=== PATIENT | male | born 1935 | race Caucasian/White ===

== ENCOUNTER 2019-10-25 11:08 | Inpatient (IN) | payer MEDICARE, BC ==
--- NOTE | 2019-10-25 11:23 | ER Document Report ---
ED General - General Chief Complaint: Shortness Of Breath Stated Complaint: COUGH/SHORTNESS OF BREATH Time Seen by Provider: 10/25/19 11:13 Primary Care Provider: DAVID ZARATE MD [Primary Care Provider] - Follow up as needed Notes: 83-year-old male presents with shortness of breath and dry "hacking" cough that started several days ago. He has began having more fatigue and dyspnea exertion last 2 days as well. No fever chills headache taste changes body aches or exposure to COVID. Denies a history of heart failure COPD. Does not smoke does not drink. No chest pain or palpitations. - Related Data Allergies/Adverse Reactions: No Known Allergies Allergy (Verified 10/25/19 11:22) Past Medical History - General Information source: Patient - Social History Smoking Status: Never Smoker Family History: None Review of Systems - Review of Systems Notes: REVIEW OF SYSTEMS GEN: Denies fever, chills, weight loss ENT: Denies sore throat, nasal discharge, ear pain EYES: Denies blurry vision, eye pain, discharge CV: Denies chest pain, palpitations, edema RESP: Numbness of breath hacking cough GI: Denies abdominal pain, nausea, vomiting, diarrhea MSK: Denies joint pain/swelling, edema, SKIN: Denies rash, skin lesions LYMPH: Denies swollen glands/lymph nodes NEURO: Denies headache, focal weakness or numbness, dizziness PSYCH: Denies depression, suicidal or homicidal ideation PHYSICAL EXAMINATION General: No acute distress, well-nourished Head: Atraumatic, normocephalic ENT: Mouth normal, oropharynx moist, no exudates or tonsillar enlargement Eyes: Conjunctiva normal, pupils equal, lids normal Neck: No JVD, supple, no guarding CVS: Normal rate, regular rhythm, no murmurs Resp: No resp distress, equal and normal breath sounds bilaterally GI: Nondistended, soft, no tenderness to palpation, no rebound or guarding Ext: No deformities, no edema, normal range of motion in upper and lower ext Back: No CVA or midline TTP Skin: No rash, warm Lymphatic: No lymphadeopathy noted Neuro: Awake, alert. Face symmetric. GCS 15. Physical Exam - Vital signs Vitals: Temp Pulse Resp BP Pulse Ox 97.7 F 99 16 132/68 H 88 L 10/25/19 11:20 10/25/19 11:20 10/25/19 11:20 10/25/19 11:20 10/25/19 11:20 Course - Re-evaluation Re-evalutation: 10/25/19 14:54 Female who seems actually quite healthy presents with unexplained dyspnea and cough for the last few days concerning for COVID-19 infection. He does not have COPD does not smoke has never smoked and has no CHF. His exam is reasonably unimpressive but he is hypoxic and seems to be reasonably unconcerned with this. COVID was sent. I pushed for rapid COVID but this was denied by hospital administration because this test is being restricted His x-ray shows bilateral infiltrates, his troponin is detectable but not elevated and there is no other explanation for his symptoms. He does have leukocytosis. I discussed his case with Dr. Nance and who said that they are treating these patients with azithromycin monotherapy if they are more likely C OVID than bacterial pneumonia. This was ordered along with Decadron per his recommendations. Culture was done. - Vital Signs Vital signs: Temp Pulse Resp BP Pulse Ox 97.7 F 99 16 132/68 H 96 10/25/19 11:20 10/25/19 11:20 10/25/19 11:20 10/25/19 11:20 10/25/19 12:00 - Laboratory Result Diagrams: 10/25/19 11:25 10/25/19 11:25 Laboratory results interpreted by me: 10/25/19 10/25/19 11:25 11:25 WBC 16.7 H RDW 15.0 H Absolute Neuts (auto) 12.8 H Sodium 136.1 L Potassium 3.5 L Est GFR (MDRD) Non-Af 55 L Glucose 228 H - Diagnostic Test Radiology reviewed: Image reviewed, Reports reviewed - EKG Interpretation by Tx EKG shows normal: Sinus rhythm Rate: Normal Rhythm: NSR When compared to previous EKG there are: Previous EKG unavailable - No ST to a changes concerning for ischemia Discharge - Discharge Clinical Impression: Bilateral pneumonia Qualifiers: Pneumonia type: due to unspecified organism Lung location: unspecified part of lung Qualified Code(s): J18.9 - Pneumonia, unspecified organism Condition: Fair Disposition: ADMITTED INPATIENT Admitting Provider: Leanne (Hospitalist) Unit Admitted: Telemetry Referrals: DAVID ZARATE MD [Primary Care Provider] - Follow up as needed
[2019-10-25 11:35] LABS: ABSOLUTE BASOPHILS # (AUTO) 0.1 10^3/uL (0.0-0.2); ABSOLUTE EOSINOPHILS # (AUTO) 0.5 10^3/uL (0.0-0.6); ABSOLUTE LYMPHOCYTES (AUTO) 2.4 10^3/uL (0.5-4.7); ABSOLUTE NEUT (AUTO) 12.8 10^3/uL (1.7-8.2); BASOPHILS % (AUTO) 0.4 % (0-2); HEMOGLOBIN 15.7 g/dL (13.5-17.0); LYMPHOCYTES % (AUTO) 14.2 % (13-45); MEAN CORPUSCULAR HEMOGLOBIN 30.3 pg (27.0-33.4); MEAN CORPUSCULAR HGB CONC 33.4 g/dL (32.0-36.0); MEAN CORPUSCULAR VOLUME 91 fl (80-97); MONOCYTES % (AUTO) 6.2 % (3-13); PLATELET COUNT 166 10^3/uL (150-450); RED BLOOD COUNT 5.19 10^6/uL (4.35-5.55); SEGMENTED NEUTROPHILS % (AUTO) 76.2 % (42-78); TOTAL CELLS COUNTED % (AUTO) 100 %; WHITE BLOOD COUNT 16.7 10^3/uL (4.0-10.5)
[2019-10-25 12:01] LABS: ANION GAP 10 (5-19); BLOOD UREA NITROGEN 19 mg/dL (7-20); CALCIUM 9.7 mg/dL (8.4-10.2); CARBON DIOXIDE 26 mmol/L (22-30); CHLORIDE 100 mmol/L (98-107); GLUCOSE 228 mg/dL (75-110); POTASSIUM 3.5 mmol/L (3.6-5.0)
[2019-10-25 13:56] LABS: TROPONIN I 0.052 ng/mL
[2019-10-25] MEDS ORDERED: AZITHROMYCIN INJ 500 MG VIAL IV ONE (14:06)
[2019-10-25] MEDS ORDERED: DEXAMETHASONE 4 MG TABLET PO ONE (14:07)
--- NOTE | 2019-10-25 14:20 | RADIOLOGY REPORT (SQ) ---
EXAM DESCRIPTION: CHEST SINGLE VIEW IMAGES COMPLETED DATE/TIME: 10/25/2019 11:41 am REASON FOR STUDY: Cough shortness of breath COMPARISON: None. EXAM PARAMETERS: NUMBER OF VIEWS: One view. TECHNIQUE: Single frontal radiographic view of the chest acquired. RADIATION DOSE: NA LIMITATIONS: None. FINDINGS: LUNGS AND PLEURA: Diffuse bilateral interstitial opacities. More focal right infrahilar n odular consolidation. No significant pleural effusion. No pneumothorax. MEDIASTINUM AND HILAR STRUCTURES: No masses. Contour normal. HEART AND VASCULAR STRUCTURES: Enlarged cardiac silhouette with central vascular congestion. BONES: No acute findings. HARDWARE: None in the chest. OTHER: No other significant finding. IMPRESSION: Enlarged cardiac silhouette, central vascular congestion and interstitial edema. More f ocal right infrahilar opacity possibly asymmetric edema or developing infiltrate. TECHNICAL DOCUMENTATION: JOB ID: [id number] 2010 [employer]- All Rights Reserved Reading location - IP/workstation name: [email or web address]
[2019-10-25] MEDS ORDERED: ONDANSETRON HCL INJ/PF 4 MG/2 ML SDV IV PRN (15:37)
[2019-10-25] MEDS ORDERED: OXYCODONE-ACETAMINOPHEN 5-325 MG TABLET PO PRN (15:37)
[2019-10-25] MEDS ORDERED: MAGNESIUM HYDROXIDE SUSP 30 ML UDCUP PO PRN (15:37)
[2019-10-25] MEDS ORDERED: TEMAZEPAM 15 MG CAPSULE PO PRN (15:37)
[2019-10-25] MEDS ORDERED: IPRATROPIUM/ALBUTEROL 0.5-2.5 MG/3 ML AMPUL NEB PRN (15:37)
[2019-10-25] MEDS ORDERED: ACETAMINOPHEN 325 MG TABLET PO PRN (15:37)
[2019-10-25] MEDS ORDERED: PROMETHAZINE HCL INJ 25 MG/1 ML VIAL IV PRN (15:37)
[2019-10-25] MEDS ORDERED: HYDRALAZINE HCL INJ/PF 20 MG/1 ML SDV IV PRN (15:44)
[2019-10-25] MEDS ORDERED: METOPROLOL TARTRATE PF/INJ 5 MG/5 ML SDV IV PRN (15:44)
[2019-10-25 16:11] LABS: FREE T4 (FREE THYROXINE) 1.58 ng/dL (0.78-2.19)
--- NOTE | 2019-10-25 16:14 | EKG REPORT ---
SEVERITY:- ABNORMAL ECG - SINUS RHYTHM NONSPECIFIC INTRAVENTRICULAR CONDUCTION DELAY MINIMAL ST DEPRESSION, LATERAL LEADS : Confirmed by: Alejandro Bishop MD 25-Oct-2019 16:14:08
[2019-10-25 16:25] LABS: THYROID STIMULATING HORMONE 1.59 uIU/mL (0.47-4.68)
[2019-10-25] MEDS ORDERED: ENOXAPARIN SODIUM INJ 40 MG/0.4 ML DISP.SYRIN SUBCUT SCH (17:00)
[2019-10-25] MEDS: ASPIRIN 81 MG TABLET, CHEWABLE PO SCH (18:29)
[2019-10-25] MEDS: VALSARTAN 160 MG TABLET PO SCH (18:30)
[2019-10-25 18:36] LABS: CHOLESTEROL 166.98 mg/dL (0-200); TRIGLYCERIDES 140 mg/dL (<150)
[2019-10-25 18:55] LABS: DIRECT LDL 97 mg/dL (<100)
[2019-10-25 19:09] LABS: APPEARANCE,URINE CLEAR; BILIRUBIN,URINE NEGATIVE (NEGATIVE); COLOR,URINE YELLOW; GLUCOSE, URINE NEGATIVE (NEGATIVE); KETONES,URINE NEGATIVE (NEGATIVE); PROTEIN,URINE NEGATIVE (NEGATIVE); URINE SPECIFIC GRAVITY 1.009; UROBILINOGEN,URINE NEGATIVE mg/dL (<2.0)
--- NOTE | 2019-10-25 20:13 | PDOC H&P ---
History of Present Illness Admission Date/PCP: 10/25/19 15:25 DAVID ZARATE MD History of Present Illness: MONTSE DUBOIS is a 83 year old male past medical history of pituitary tumor status post transsphenoidal hypophysectomy, acquired hypothyroidism, hypertension, gout, hyperlipidemia, presenting to ED complaining of recent onset of extreme fatigue, dyspnea on exertion, and nonproductive cough. At baseline patient is very healthy does not have any dyspnea on exertion and is very independent, however recently he gets winded very easily and has to rest for 5 to 10 minutes before he can do any activities. Dyspnea on exertion is not associated with any chest pain, palpitation, lightheadedness or syncope or presyncope. Patient denies any history personal or family history of CAD, COPD, arrhythmias. Patient denies any recent travel, any exposure to anyone suspected of being exposed to COVID-19. In ED he was noted to be hypertensive, tachypneic, and hypoxic, troponins were mildly elevated, and EKG read as sinus rhythm with nonspecific anterior ventricular conduction delay. Minimal ST depression. Chest x-ray enlarged cardiac silhouette, central vascular congestion and interstitial edema. More focal right infra hilar opacity possibly asymmetric edema or developing infiltrate. Denies any headache, vision changes, weight changes, orthopnea, paroxysmal nocturnal dyspnea, palpitation, lightheadedness, chest pain, nausea, vomiting, diarrhea, constipation, abdominal pain, urinary symptoms. Past Medical History Cardiac Medical History: Reports: Hypertension Social History Smoking Status: Never Smoker Family History Family History: None Parental Family History Reviewed: Yes Children Family History Reviewed: Yes Sibling(s) Family History Reviewed.: Yes Medication/Allergy Home Medications: Allopurinol [Zyloprim 300 mg Tablet] 300 mg PO DAILY 10/25/19 Atorvastatin Calcium [Lipitor 20 mg Tablet] 20 mg PO QHS 10/25/19 Levothyroxine Sodium [Synthroid] 125 mcg PO Q6AM 10/25/19 Valsartan/Hydrochlorothiazide [Valsartan-Hctz 320-25 mg Tab] 1 each PO DAILY 10/25/19 Verapamil HCl [Verapamil ER] 240 mg PO DAILY 10/25/19 Allergies/Adverse Reactions: No Known Allergies Allergy (Verified 10/25/19 11:22) Review of Systems Review of Systems: as per hpi Physical Exam Vital Signs: Temp Pulse Resp BP Pulse Ox 97.7 F 99 32 H 159/100 H 96 10/25/19 11:20 10/25/19 11:20 10/25/19 19:01 10/25/19 19:01 10/25/19 19:01 Intake & Output 10/24/19 10/25/19 10/26/19 06:59 06:59 06:59 Weight 102.058 kg General appearance: PRESENT: no acute distress, obese, well-developed, well- nourished Head exam: PRESENT: atraumatic, normocephalic Respiratory exam: PRESENT: clear to auscultation michelle. ABSENT: rales, rhonchi, wheezes Cardiovascular exam: PRESENT: RRR. ABSENT: diastolic murmur, rubs, systolic murmur GI/Abdominal exam: PRESENT: normal bowel sounds, soft. ABSENT: distended, guarding, mass, organolmegaly, rebound, tenderness Extremities exam: PRESENT: full ROM, pedal edema. ABSENT: calf tenderness, clubbing Neurological exam: PRESENT: alert, awake, oriented to person, oriented to place, oriented to time, oriented to situation, CN II-XII grossly intact. ABSENT: motor sensory deficit Skin exam: PRESENT: dry, intact, warm. ABSENT: cyanosis, rash Results Laboratory Results: 10/25/19 11:25 10/25/19 11:25 10/25/19 10/25/19 10/25/19 11:25 11:25 11:25 WBC 16.7 H RBC 5.19 Hgb 15.7 Hct 47.0 MCV 91 MCH 30.3 MCHC 33.4 RDW 15.0 H Plt Count 166 Seg Neutrophils % 76.2 Sodium 136.1 L Potassium 3.5 L Chloride 100 Carbon Dioxide 26 Anion Gap 10 BUN 19 Creatinine 1.25 Est GFR ( Amer) > 60 Glucose 228 H Calcium 9.7 Triglycerides Cholesterol LDL Cholesterol Direct VLDL Cholesterol HDL Cholesterol TSH 1.59 Free T4 1.58 Urine Color Urine Appearance Urine pH Ur Specific [place] Urine Protein Urine Glucose (UA) Urine Ketones Urine Blood Urine RBC (Auto) 10/25/19 10/25/19 16:20 18:30 WBC RBC Hgb Hct MCV MCH MCHC RDW Plt Count Seg Neutrophils % Sodium Potassium Chloride Carbon Dioxide Anion Gap BUN Creatinine Est GFR ( Amer) Glucose Calcium Triglycerides 140 Cholesterol 166.98 LDL Cholesterol Direct 97 VLDL Cholesterol 28.0 HDL Cholesterol 47 TSH Free T4 Urine Color YELLOW Urine Appearance CLEAR Urine pH 6.0 Ur Specific [place] 1.009 Urine Protein NEGATIVE Urine Glucose (UA) NEGATIVE Urine Ketones NEGATIVE Urine Blood SMALL H Urine RBC (Auto) 1 10/25/19 11:25 Troponin I 0.052 NT-Pro-B Natriuret Pep 278 Impressions: Chest X-Ray 10/25/19 11:22 IMPRESSION: Enlarged cardiac silhouette, central vascular congestion and interstitial edema. More focal right infrahilar opacity possibly asymmetric edema or developing infiltrate. Assessment and Plan - Diagnosis (1) Dyspnea on exertion Is this a current diagnosis for this admission?: Yes Plan: Likely due to COVID-19 or pneumonia however underlying CAD is also highly suspected given history and presentation. Denies any personal family history of CAD. Chest x-ray is positive for cardiomegaly. Minimal ST depression. Mildly elevated troponins. TSH, T3 and T4 WNL. Hemoglobin A1c WNL. Lipid panel WNL. Admit to telemetry, antiplatelets, statins, beta-blockers, CARMELO, sublingual nitroglycerin, IV morphine, consult cardiology for possible stress test for further risk stratification. (2) Hypertension Is this a current diagnosis for this admission?: Yes Plan: Mildly elevated blood pressure. Trace bipedal edema. Takes hydrochlorothiazide and valsartan and verapamil at home. Admit to telemetry, continue CARMELO, continue hydrochlorothiazide, continue verapamil. Monitor vitals. Adjust meds as needed. (3) Hypothyroidism (acquired) Is this a current diagnosis for this admission?: Yes Plan: History of pituitary tumor, status post hypophysectomy. TSH, T3-T4 WNL. Resume home meds. Outpatient PCP follow-up. (4) Hyperlipidemia Qualifiers: Hyperlipidemia type: mixed hyperlipidemia Qualified Code(s): E78.2 - Mixed hyperlipidemia Is this a current diagnosis for this admission?: Yes Plan: Resume statins. Diet and lifestyle modification recommended. TSH, T3 and T4 WNL. Hemoglobin A1c WNL. Lipid panel WNL. (5) Suspected COVID-19 virus infection Is this a current diagnosis for this admission?: Yes Plan: Denies any exposure to anyone with suspected COVID 19 exposure. Denies any fever. Presenting with fatigue, dyspnea on exertion and dry cough. Denies any diarrhea, loss of smell or loss of taste. Admit to IMCU, azithromycin IV, dexamethasone, COVID-19 serology. Contact and droplet isolation.
[2019-10-25] MEDS: IPRATROPIUM/ALBUTEROL 0.5-2.5 MG/3 ML AMPUL NEB SCH (20:40)
--- NOTE | 2019-10-25 22:41 | PDOC CONSULTATION ---
Consultation-Blank Consultation: CARDIOLOGY CONSULTATION by Dr. Sobeida Jennings on 10/25/2019. Patient seen at 6:30 PM. 60 minutes spent as patient more than 50% time spent in direct patient care. HISTORY OF PRESENT ILLNESS: Patient is a 83-year-old male with a history of hypertension, history of transsphenoidal hypophysectomy for pituitary tumor, hypothyroidism who states since the past few months has been having progressively increasing dyspnea on exertion. But no chest pain or discomfort. There is no palpitations. There is no PND orthopnea or leg edema. Recently the patient had increasing shortness of breath and fatigue which escalated in the last 5 to 10 days. He denies any fever or sore throat or altered taste or smell sensation. With the patient also has dry nonproductive cough the cough is more when the patient is lying down suggestive of PND equal. There is no leg edema. There is no history of coronary artery disease LA or anginal symptoms. But his EKG shows possible old inferior wall LA and there is lateral ST-T changes consistent with possible ischemia. There is no history of asthma or COPD. The patient has never smoked and there is no history of wheezing. When he came to emergency room he was found to be hypertensive tachypneic and hypoxic. The patient initial troponin which is indeterminate is now increased to 0.410. The EKG does show some lateral ST depression which is mild raising the possibility that this could be in non-STEMI, and evidence of old inferior LA.. Also highly suspected there is systolic heart failure versus acute on chronic diastolic heart failure. Would later get an echo to determine this. Note that the patient has been tested for coronavirus infection and results are pending. Past Medical History Cardiac Medical History: Reports: Hypertension. No history of coronary artery disease. No history of LA or anginal symptoms. No history of congestive heart failure. No history of cardiac arrhythmia. No prior history of congestive heart failure documented. The patient has not had an echo. The patient states prior to 6 months he was very active and but at present he is not able to be at the level of activity that he used to be doing in the past. He has no syncope. He has a history of hyperlipidemia. He denies any history of chronic kidney disease. But the patient's GFR is slightly reduced at 55 mL. Social History Smoking Status: Never Smoker Family History Family History: None. There is no history of coronary artery disease. History of hypertension present. No history of sudden . Parental Family History Reviewed: Yes Children Family History Reviewed: Yes Sibling(s) Family History Reviewed.: Yes Medication/Allergy Home Medications: Allopurinol [Zyloprim 300 mg Tablet] 300 mg PO DAILY 10/25/19 Atorvastatin Calcium [Lipitor 20 mg Tablet] 20 mg PO QHS 10/25/19 Levothyroxine Sodium [Synthroid] 125 mcg PO Q6AM 10/25/19 Valsartan/Hydrochlorothiazide [Valsartan-Hctz 320-25 mg Tab] 1 each PO DAILY 10/25/19 Verapamil HCl [Verapamil ER] 240 mg PO DAILY 10/25/19 RESUSCITATION STATUS: The patient is a full code. His is a surrogate healthcare decision maker. Allergies/Adverse Reactions: No Known Allergies Allergy (Verified 10/25/19 11:22) Current Medications Generic Name Dose Route Start Last Admin Trade Name Freq PRN Reason Stop Dose Admin Acetaminophen 325 mg 10/25/19 15:37 Tylenol 325 Mg Tablet PO 11/24/19 15:36 Q4HP PRN FEVER >101 Albuterol/Ipratropium 3 ml 10/25/19 20:00 10/25/19 20:40 Duoneb 3 Ml Ampul NEB 11/24/19 19:59 3 ml [id number] RUDY Administration Albuterol/Ipratropium 3 ml 10/25/19 15:37 Duoneb 3 Ml Ampul NEB 11/24/19 15:36 [id number] PRN SHORTNESS OF BREATH Allopurinol 300 mg 10/26/19 10:00 Zyloprim 300 Mg Tablet PO 11/25/19 09:59 DAILY RUDY Aspirin 81 mg 10/25/19 16:30 10/25/19 18:29 Aspirin 81 Mg Chewable Tablet PO 11/24/19 16:29 81 mg DAILY RUDY Administration Atorvastatin Calcium 40 mg 10/25/19 22:00 10/25/19 22:42 Lipitor 40 Mg Tablet PO 11/24/19 21:59 40 mg QHS RUDY Administration Dexamethasone 2 mg 10/25/19 22:00 10/25/19 22:42 Decadron 4 Mg Tablet PO 11/24/19 21:59 2 mg Q8 RUDY Administration Enoxaparin Sodium 100 mg 10/26/19 10:00 Lovenox Inj 100 Mg/1 Ml Disp.Syrin SUBCUT 11/25/19 09:59 Q12 RUDY Famotidine 20 mg 10/25/19 22:00 10/25/19 22:42 Pepcid 20 Mg Tablet PO 11/24/19 21:59 20 mg Q12 RUDY Administration Hydralazine HCl 10 mg 10/25/19 15:44 Apresoline Inj/Pf 20 Mg/1 Ml Sdv IV 11/24/19 15:43 Q3HP PRN Give For Sbp > [150] Azithromycin 500 mg/ Dextrose 250 mls @ 250 mls/hr 10/26/19 18:00 IV 11/02/19 17:59 QPM RUDY Levothyroxine Sodium 0.1 mg 10/26/19 06:00 Synthroid 0.1 Mg Tablet PO 11/25/19 05:59 Q6AM RUDY Levothyroxine Sodium 0.025 mg 10/26/19 06:00 Synthroid 0.025 Mg Tablet PO 11/25/19 05:59 Q6AM RUDY Magnesium Hydroxide 30 ml 10/25/19 15:37 Milk Of Magnesia 30 Ml Udcup PO 11/24/19 15:36 HSP PRN FOR CONSTIPATION Metoprolol Tartrate 2.5 mg 10/25/19 15:44 Lopressor Inj/Pf 5 Mg/5 Ml Sdv IV 11/24/19 15:43 Q6HP PRN Give For Hr > [150] Ondansetron HCl 4 mg 10/25/19 15:37 Zofran Inj/Pf 4 Mg/2 Ml Sdv IV 11/24/19 15:36 Q4HP PRN FOR NAUSEA/VOMITING Oxycodone/Acetaminophen 1 tab 10/25/19 15:37 Percocet 5-325 Mg Tablet PO 11/01/19 15:36 Q4HP PRN FOR PAIN SCALE 3-5 Promethazine HCl 12.5 mg 10/25/19 15:37 Phenergan Inj 25 Mg/1 Ml Vial IV 11/24/19 15:36 Q4HP PRN FOR UNRESOLVED NAUSEA/VOMITING Temazepam 15 mg 10/25/19 15:37 Restoril 15 Mg Capsule PO 11/01/19 15:36 HSP PRN SLEEP OR INSOMNIA Valsartan 320 mg 10/25/19 16:30 10/25/19 18:30 Diovan 160 Mg Tablet PO 11/24/19 16:29 320 mg DAILY RUDY Administration Discontinued Medications Generic Name Dose Route Start Last Admin Trade Name Niko PRN Reason Stop Dose Admin Azithromycin 500 mg 10/25/19 14:06 10/25/19 14:34 Zithromax Inj 500 Mg Vial IV 10/25/19 14:07 500 mg IVBAG (ED) ONE Administration Dexamethasone 2 mg 10/25/19 14:07 10/25/19 14:34 Decadron 4 Mg Tablet PO 10/25/19 14:08 2 mg NOW ONE Administration Enoxaparin Sodium 40 mg 10/25/19 17:00 10/25/19 18:30 Lovenox Inj 40 Mg/0.4 Ml Disp.Syrin SUBCUT 11/24/19 16:59 40 mg DAILY RUDY Administration Enoxaparin Sodium 60 mg 10/26/19 00:15 Lovenox Inj 60 Mg/0.6 Ml Disp.Syrin SUBCUT 10/26/19 00:16 NOW ONE Valsartan 320 mg 10/26/19 10:00 Diovan 160 Mg Tablet PO 11/25/19 09:59 DAILY RUDY Review of Systems Review of Systems: REVIEW OF SYSTEMS: HEAD: Denies headache or head injury. Denies dizziness. CONSTITUTIONAL: No history of fever chills or rigors. Denies any generalized fatigue or weakness. She claims to be very active. EYES: No history of EMLA. Diplopia, and no for amaurosis fugax. NOSE: No history of deviated nasal septum, no hayfever and no nosebleeds. THROAT: No history of odynophagia dysphagia no history of recurrent sore throats. MOUTH: No altered taste sensation no ulcers in the mouth no bleeding from the gums. SKIN: No history of pruritus no history of allergies discoloration of the skin, no skin cancer or eczema. NECK: No history of neck pain,, no swelling in the neck. No goiter. LUNGS: No history of asthma COPD. No recent symptoms of upper or lower respiratory tract infection. No history of pulmonary embolism or sleep apnea. He has dry cough which could be interpreted as PND equal. No wheezing. No acute hemoptysis. No pleuritic chest pain. HEART: He has a history of hypertension, no prior history of LA or congestive heart failure or cardiac arrhythmia no history of leg edema no history of orthopnea. No history of syncope history of decreased effort tolerance and dyspnea on exertion since the last 6 months which is progressed since the last 5 to 10 days. There is possible PND equal length. But no orthopnea or leg edema. No palpitations or syncope. GI: No history of GERD symptoms. No history of jaundice. No history of fatty food intolerance. Note that the patient's liver function tests are slightly abnormal. There is no history of GI bleed. No abdominal pain. No cirrhosis of the liver. No altered bowel movements. No abdominal pain. Endocrine: No history of diabetes mellitus. He has a history of hypothyroidism. No history of polydipsia polyuria no history of heat or cold intolerance. No history of hirsutism. No history of excessive sweating. RENAL: No history of chronic kidney disease. But his GFR is reduced at 55 mL. No symptoms of UTI no history of hematuria pyuria or dysuria. Musculoskeletal: Denies arthritis or collagen vascular disease. Metabolic: No history of obesity. No history of gout. Although she has no prior history of hyperlipidemia the patient's lipids are elevated this admission. CLIENT RESOLUTION SPECIALIST: No history of TIA or CVA no history of headaches migraines or seizures, and no gait imbalance. PSYCHIATRIC: No history of anxiety depression. No suicidal ideation no homicidal ideation. VASCULAR: No history of calf or buttock claudication, and no history of DVT. Hematological: No history of bleeding diathesis or clotting disorders. No history of anemia. PHYSICAL EXAMINATION: The patient is mildly obese. In no acute distress. He is well-groomed. Selected Entries 10/25/19 19:29 Temperature 98.3 F Temperature Oral Source Pulse Rate 102 H Respiratory 19 Rate Blood Pressure 143/73 H Blood Pressure 96 Mean BP Location Right Arm BP Position Sitting O2 Sat by Pulse 91 L Oximetry Oxygen Delivery Room Air Method HEAD: Is atraumatic normocephalic. EYES: Pupils are equal round regular reactive to light and accommodation. Extraocular movements are normal. There is no conjunctival pallor. There is no scleral icterus. Ears: Tympanic membranes are intact. External auditory canals are clear. NOSE: There is no deviated nasal septum. There is no inflammation nasal mucous membrane. MOUTH: Mucous membranes of mouth are moist. Tongue is moist. There is no ulcers.. THROAT: There is no redness of the oropharynx. There is no exudates. SKIN: There is no skin rashes. There is no petechia or ecchymosis. There is no skin lesions. NECK: Is supple. There is no JVD. Carotids are equal there is no bruit. There is no lymphadenopathy. There is no goiter. There is no accessory muscle respiration use. Trachea central. LUNGS: Shows a few bibasilar rales. There is no rhonchi or wheezing. There is some dry crackles in the right middle lobe. There is no murmur of aortic stenosis. There is murmur of mitral regurgitation present. ABDOMEN: Soft. There is no paraspinal megaly. Bowel sounds are well heard. EXTREMITIES: Femorals are well felt. There is no femoral bruits. Leg pulses are well felt. There is no pedal edema. There is no DVT or cellulitis. There is no calf tenderness. There is no cyanosis or clubbing. CLIENT RESOLUTION SPECIALIST: The patient is conscious awake alert oriented x3 with no focal deficit. PSYCHIATRIC: The patient judgment insight are intact his affect is normal. EKG: Serially shows sinus rhythm. Possible old inferior LA. ST depression lateral leads with T inversion. Possible ischemia. Labs- Entire Visit 10/25/19 10/25/19 10/25/19 11:25 11:25 11:25 WBC 16.7 H RBC 5.19 Hgb 15.7 Hct 47.0 MCV 91 MCH 30.3 MCHC 33.4 RDW 15.0 H Plt Count 166 Lymph % (Auto) 14.2 [place] % (Auto) 6.2 Eos % (Auto) 3.0 Baso % (Auto) 0.4 Absolute Neuts (auto) 12.8 H Absolute Lymphs (auto) 2.4 Absolute Monos (auto) 1.0 Absolute Eos (auto) 0.5 Absolute Basos (auto) 0.1 Seg Neutrophils % 76.2 Sodium 136.1 L Potassium 3.5 L Chloride 100 Carbon Dioxide 26 Anion Gap 10 BUN 19 Creatinine 1.25 Est GFR ( Amer) > 60 Est GFR (MDRD) Non-Af 55 L Glucose 228 H Hemoglobin A1c % Calcium 9.7 Troponin I 0.052 NT-Pro-B Natriuret Pep 278 Triglycerides Cholesterol LDL Cholesterol Direct VLDL Cholesterol HDL Cholesterol TSH Free T4 Urine Color Urine Appearance Urine pH Ur Specific [place] Urine Protein Urine Glucose (UA) Urine Ketones Urine Blood Urine Nitrite (Reflex) Urine Bilirubin Urine Urobilinogen Leukocyte Esterase Rfl Urine RBC (Auto) Urine WBC (Reflex) Squamous Epi Cells Auto Urine Ascorbic Acid 10/25/19 10/25/19 10/25/19 11:25 16:20 16:20 WBC RBC Hgb Hct MCV MCH MCHC RDW Plt Count Lymph % (Auto) [place] % (Auto) Eos % (Auto) Baso % (Auto) Absolute Neuts (auto) Absolute Lymphs (auto) Absolute Monos (auto) Absolute Eos (auto) Absolute Basos (auto) Seg Neutrophils % Sodium Potassium Chloride Carbon Dioxide Anion Gap BUN Creatinine Est GFR ( Amer) Est GFR (MDRD) Non-Af Glucose Hemoglobin A1c % 6.4 H Calcium Troponin I NT-Pro-B Natriuret Pep Triglycerides 140 Cholesterol 166.98 LDL Cholesterol Direct 97 VLDL Cholesterol 28.0 HDL Cholesterol 47 TSH 1.59 Free T4 1.58 Urine Color Urine Appearance Urine pH Ur Specific [place] Urine Protein Urine Glucose (UA) Urine Ketones Urine Blood Urine Nitrite (Reflex) Urine Bilirubin Urine Urobilinogen Leukocyte Esterase Rfl Urine RBC (Auto) Urine WBC (Reflex) Squamous Epi Cells Auto Urine Ascorbic Acid 10/25/19 10/25/19 18:30 19:42 WBC RBC Hgb Hct MCV MCH MCHC RDW Plt Count Lymph % (Auto) [place] % (Auto) Eos % (Auto) Baso % (Auto) Absolute Neuts (auto) Absolute Lymphs (auto) Absolute Monos (auto) Absolute Eos (auto) Absolute Basos (auto) Seg Neutrophils % Sodium Potassium Chloride Carbon Dioxide Anion Gap BUN Creatinine Est GFR ( Amer) Est GFR (MDRD) Non-Af Glucose Hemoglobin A1c % Calcium Troponin I 0.410 NT-Pro-B Natriuret Pep Triglycerides Cholesterol LDL Cholesterol Direct VLDL Cholesterol HDL Cholesterol TSH Free T4 Urine Color YELLOW Urine Appearance CLEAR Urine pH 6.0 Ur Specific [place] 1.009 Urine Protein NEGATIVE Urine Glucose (UA) NEGATIVE Urine Ketones NEGATIVE Urine Blood SMALL H Urine Nitrite (Reflex) NEGATIVE Urine Bilirubin NEGATIVE Urine Urobilinogen NEGATIVE Leukocyte Esterase Rfl TRACE H Urine RBC (Auto) 1 Urine WBC (Reflex) 14 Squamous Epi Cells Auto <1 Urine Ascorbic Acid NEGATIVE Chest X-Ray 10/25/19 11:22 IMPRESSION: Enlarged cardiac silhouette, central vascular congestion and interstitial edema. More focal right infrahilar opacity possibly asymmetric edema or developing infiltrate. RECOMMENDATIONS/IMPRESSION: 1. Non-STEMI: Would at least treat the patient with Lovenox at 1 mg/kg subcutaneously every 12 hours for at least 48 hours. Later would recommend that the patient have a IV Lexiscan Cardiolite stress test. Would recommend discontinuing the patient's verapamil and starting the patient on metoprolol extended release along with the Diovan. 2. Congestive heart failure: Acute on chronic systolic heart failure versus acute on chronic LV diastolic failure. Later would recommend getting an echocardiogram to identify the etiology of the heart failure. 3. Abnormal EKG: Shows with possible old inferior LA. Most likely the patient has silent coronary artery disease. 4. Right middle lobe pneumonia: Continue antibiotics. 5. Dyspnea on exertion and fatigue and decreased effort tolerance: Most likely the patient has underlying cardiomyopathy versus secondary to significant coronary artery disease causing exertional LV dysfunction. 6. Cardiomyopathy is a high probability: Recommend echocardiogram. As mentioned earlier switch to long-acting beta-maria elena and continue patient's Diovan increase as tolerated. 7. Hypothyroidism: Continue thyroid replacement. 8. Hype hyperlipidemia: Continue statin 9. Patient be worked up for COVID19 infection. 10. History of pituitary tumor removal in the past. 11.Mildly reduced GFR:? Chronic kidney disease versus secondary to acute heart failure. Medications reviewed. Medical regimen and management plan discussed with attending provider. Medications changed. New medications added. Medical decision making is high complexity. 60 minutes spent as patient more than 50% of time spent in direct patient care. Will follow
[2019-10-25] MEDS: FAMOTIDINE 20 MG TABLET PO SCH (22:42)
[2019-10-25] MEDS: DEXAMETHASONE 4 MG TABLET PO SCH (22:42)
[2019-10-25] MEDS: ATORVASTATIN CALCIUM 40 MG TABLET PO SCH (22:42)
[2019-10-26] MEDS ORDERED: ENOXAPARIN SODIUM INJ 60 MG/0.6 ML DISP.SYRIN SUBCUT ONE (00:15)
[2019-10-26] MEDS: DEXAMETHASONE 4 MG TABLET PO SCH ×3 (05:56→21:22)
[2019-10-26] MEDS: LEVOTHYROXINE SODIUM 0.1 MG TABLET PO SCH (05:57)
[2019-10-26] MEDS: LEVOTHYROXINE SODIUM 0.025 MG TABLET PO SCH (05:57)
[2019-10-26] MEDS ORDERED: (PENDING PHARMACY ID) (Levothyroxine Sodium [Synthroid] 125 MCG) PO SCH (06:00)
--- NOTE | 2019-10-26 07:47 | EKG REPORT ---
SEVERITY:- ABNORMAL ECG - SINUS TACHYCARDIA ABNORMAL T, CONSIDER ISCHEMIA, LATERAL LEADS : Confirmed by: Alejandro Bishop MD 26-Oct-2019 07:47:04
[2019-10-26 08:17] LABS: ABSOLUTE BASOPHILS # (AUTO) 0.1 10^3/uL (0.0-0.2); ABSOLUTE MONOCYTES (AUTO) 0.7 10^3/uL (0.1-1.4); ABSOLUTE NEUT (AUTO) 12.7 10^3/uL (1.7-8.2); BASOPHILS % (AUTO) 0.7 % (0-2); EOSINOPHILS % (AUTO) 0.1 % (0-6); HEMATOCRIT 45.8 % (37.9-51.0); HEMOGLOBIN 15.5 g/dL (13.5-17.0); LYMPHOCYTES % (AUTO) 6.8 % (13-45); MEAN CORPUSCULAR HEMOGLOBIN 30.3 pg (27.0-33.4); MEAN CORPUSCULAR HGB CONC 33.9 g/dL (32.0-36.0); MEAN CORPUSCULAR VOLUME 89 fl (80-97); MONOCYTES % (AUTO) 4.6 % (3-13); PLATELET COUNT 150 10^3/uL (150-450); RED BLOOD COUNT 5.12 10^6/uL (4.35-5.55); RED CELL DISTRIBUTION WIDTH 14.9 % (11.5-14.0); SEGMENTED NEUTROPHILS % (AUTO) 87.8 % (42-78); TOTAL CELLS COUNTED % (AUTO) 100 %; WHITE BLOOD COUNT 14.5 10^3/uL (4.0-10.5)
[2019-10-26 08:26] LABS: INTERNATIONAL RATION (INR) 1.12; PROTHROMBIN TIME 14.5 SEC (11.4-15.4)
[2019-10-26] MEDS: IPRATROPIUM/ALBUTEROL 0.5-2.5 MG/3 ML AMPUL NEB SCH ×3 (08:29→21:13)
[2019-10-26 08:45] LABS: ALBUMIN 4.1 g/dL (3.5-5.0); ALKALINE PHOSPHATASE 75 U/L (38-126); ANION GAP 8 (5-19); ASPARTATE AMINO TRANSFERASE 27 U/L (17-59); BILIRUBIN,TOTAL 1.1 mg/dL (0.2-1.3); BLOOD UREA NITROGEN 21 mg/dL (7-20); CALCIUM 9.7 mg/dL (8.4-10.2); CARBON DIOXIDE 29 mmol/L (22-30); CHLORIDE 100 mmol/L (98-107); GLUCOSE 159 mg/dL (75-110); POTASSIUM 4.4 mmol/L (3.6-5.0); TOTAL PROTEIN 7.4 g/dL (6.3-8.2)
[2019-10-26] MEDS: FAMOTIDINE 20 MG TABLET PO SCH ×2 (09:38→21:23)
[2019-10-26] MEDS: VALSARTAN 160 MG TABLET PO SCH (09:38)
[2019-10-26] MEDS: ENOXAPARIN SODIUM INJ 100 MG/1 ML DISP.SYRIN SUBCUT SCH ×2 (09:38→21:22)
[2019-10-26] MEDS: ASPIRIN 81 MG TABLET, CHEWABLE PO SCH (09:38)
[2019-10-26] MEDS: ALLOPURINOL 300 MG TABLET PO SCH (09:38)
[2019-10-26] MEDS: METOPROLOL SUCCINATE 25 MG TAB.SR.24H PO SCH ×2 (09:38→21:23)
[2019-10-26] MEDS ORDERED: VALSARTAN 160 MG TABLET PO SCH (10:00)
--- NOTE | 2019-10-26 10:22 | Progress Note ---
Provider Note Provider Note: CARDIOLOGY PROGRESS NOTE by Dr. Sobeida Jennings on 10/26/2019. SUBJECTIVE: The patient states when he walks inside the room he is less short of breath. There is no chest pain or discomfort. There is no arrhythmias seen. There is no rest shortness of breath PND orthopnea. There is no leg edema. His troponin is trending down. His COVID19 results are awaited. PHYSICAL EXAMINATION: The patient is well-built. In no acute distress. Selected Entries 10/26/19 08:50 Temperature Oral Source Pulse Rate 90 Respiratory 16 Rate Blood Pressure 146/71 H Blood Pressure 96 Mean BP Location Right Arm BP Position Sitting O2 Sat by Pulse 97 Oximetry Oxygen Flow 2.00 Rate Oxygen Delivery Nasal Cannula Method HEAD: Is atraumatic normocephalic. EYES: Pupils are equal round regular reactive to light and accommodation. Extraocular movements are normal. There is no conjunctival pallor. There is no scleral icterus. Ears: Tympanic membranes are intact. External auditory canals are clear. NOSE: There is no deviated nasal septum. There is no inflammation nasal mucous membrane. MOUTH: Mucous membranes of mouth are moist. Tongue is moist. There is no ulcers.. THROAT: There is no redness of the oropharynx. There is no exudates. SKIN: There is no skin rashes. There is no petechia or ecchymosis. There is no skin lesions. NECK: Is supple. There is no JVD. Carotids are equal there is no bruit. There is no lymphadenopathy. There is no goiter. There is no accessory muscle respiration use. Trachea central. LUNGS: Shows a few bibasilar rales. There is no rhonchi or wheezing. There is some dry crackles in the right middle lobe. There is no murmur of aortic stenosis. There is murmur of mitral regurgitation present. ABDOMEN: Soft. There is no paraspinal megaly. Bowel sounds are well heard. EXTREMITIES: Femorals are well felt. There is no femoral bruits. Leg pulses are well felt. There is no pedal edema. There is no DVT or cellulitis. There is no calf tenderness. There is no cyanosis or clubbing. COMPUTER BOOKKEEPER: The patient is conscious awake alert oriented x3 with no focal deficit. PSYCHIATRIC: The patient judgment insight are intact his affect is normal. Chest X-Ray 10/25/19 11:22 IMPRESSION: Enlarged cardiac silhouette, central vascular congestion and interstitial edema. More focal right infrahilar opacity possibly asymmetric edema or developing infiltrate. Labs- All tests 24 hr 10/26/19 10/26/19 10/26/19 01:57 07:56 07:56 WBC 14.5 H RBC 5.12 Hgb 15.5 Hct 45.8 MCV 89 MCH 30.3 MCHC 33.9 RDW 14.9 H Plt Count 150 Lymph % (Auto) 6.8 [place] % (Auto) 4.6 Eos % (Auto) 0.1 Baso % (Auto) 0.7 Absolute Neuts (auto) 12.7 H Absolute Lymphs (auto) 1.0 Absolute Monos (auto) 0.7 Absolute Eos (auto) 0.0 Absolute Basos (auto) 0.1 Seg Neutrophils % 87.8 H PT 14.5 INR 1.12 Sodium Potassium Chloride Carbon Dioxide Anion Gap BUN Creatinine Est GFR ( Amer) Est GFR (MDRD) Non-Af Glucose Calcium Magnesium Total Bilirubin Direct Bilirubin Neonat Total Bilirubin Neonat Direct Bilirubin Neonat Indirect Bili AST ALT Alkaline Phosphatase Troponin I 0.330 Total Protein Albumin 10/26/19 07:56 WBC RBC Hgb Hct MCV MCH MCHC RDW Plt Count Lymph % (Auto) [place] % (Auto) Eos % (Auto) Baso % (Auto) Absolute Neuts (auto) Absolute Lymphs (auto) Absolute Monos (auto) Absolute Eos (auto) Absolute Basos (auto) Seg Neutrophils % PT INR Sodium 136.9 L Potassium 4.4 Chloride 100 Carbon Dioxide 29 Anion Gap 8 BUN 21 H Creatinine 1.11 Est GFR ( Amer) > 60 Est GFR (MDRD) Non-Af > 60 Glucose 159 H Calcium 9.7 Magnesium 2.0 Total Bilirubin 1.1 Direct Bilirubin 0.0 Neonat Total Bilirubin Not Reportable Neonat Direct Bilirubin Not Reportable Neonat Indirect Bili Not Reportable AST 27 ALT 17 Alkaline Phosphatase 75 Troponin I Total Protein 7.4 Albumin 4.1 RECOMMENDATIONS/IMPRESSION: 1. Non-STEMI: Would at least treat the patient with Lovenox at 1 mg/kg subcutaneously every 12 hours for at least 48 hours. Later would recommend that the patient have a IV Lexiscan Cardiolite stress test. Would recommend discontinuing the patient's verapamil and starting the patient on metoprolol extended release along with the Diovan. 2. Congestive heart failure: Acute on chronic systolic heart failure versus acute on chronic LV diastolic failure. Later would recommend getting an echocardiogram to identify the etiology of the heart failure. 3. Abnormal EKG: Shows with possible old inferior NC. Most likely the patient has silent coronary artery disease. 4. Right middle lobe pneumonia: Continue antibiotics. 5. Dyspnea on exertion and fatigue and decreased effort tolerance: Most likely the patient has underlying cardiomyopathy versus secondary to significant coronary artery disease causing exertional LV dysfunction. 6. Cardiomyopathy is a high probability: Recommend echocardiogram. Echocardiogram will be done once the code tests are available. As mentioned earlier switch to long-acting beta-maria elena and continue patient's Diovan increase as tolerated. 7. Hypothyroidism: Continue thyroid replacement. 8. Hype hyperlipidemia: Continue statin 9. Patient be worked up for COVID19 infection. 10. History of pituitary tumor removal in the past. 11.Mildly reduced GFR:? Chronic kidney disease versus secondary to acute heart failure. Medications reviewed. Medication medical regimen and management plan discussed with attending provider on the case.. 40 minutes spent as patient more than 50% of time spent in direct patient care. Medical decision making is of high complexity. Will follow
--- NOTE | 2019-10-26 17:57 | PDOC PROGRESS REPORT ---
Subjective Progress Note for:: 10/26/19 Subjective:: MONTSE DUBOIS is a 83 year old male past medical history of pituitary tumor status post transsphenoidal hypophysectomy, acquired hypothyroidism, hypertension, gout, hyperlipidemia, presenting to ED complaining of recent onset of extreme fatigue, dyspnea on exertion, and nonproductive cough. At baseline patient is very healthy does not have any dyspnea on exertion and is very independent, however recently he gets winded very easily and has to rest for 5 to 10 minutes before he can do any activities. Dyspnea on exertion is not associated with any chest pain, palpitation, lightheadedness or syncope or presyncope. Patient denies any history personal or family history of CAD, COPD, arrhythmias. Patient denies any recent travel, any exposure to anyone suspected of being exposed to COVID-19. In ED he was noted to be hypertensive, tachypneic, and hypoxic, troponins were mildly elevated, and EKG read as sinus rhythm with nonspecific anterior ventricular conduction delay. Minimal ST depression. Chest x-ray enlarged cardiac silhouette, central vascular congestion and interstitial edema. More focal right infra hilar opacity possibly asymmetric edema or developing infiltrate. Denies any headache, vision changes, weight changes, orthopnea, paroxysmal nocturnal dyspnea, palpitation, lightheadedness, chest pain, nausea, vomiting, diarrhea, constipation, abdominal pain, urinary symptoms. 10/26/2019. No acute events overnight. Patient reporting significant improvement of her fatigue and shortness of breath. Able to walk to the restroom and brush his teeth without any significant shortness of breath. Denies any fever, chills, nausea, vomiting, diarrhea, constipation or any urinary symptoms. Reason For Visit: DELVALLE,ELEVATED TROPS,FATIGUE Physical Exam Vital Signs: Temp Pulse Resp BP Pulse Ox 98.2 F 82 16 150/81 H 96 10/26/19 03:12 10/26/19 14:00 10/26/19 13:47 10/26/19 11:57 10/26/19 13:47 Intake & Output 10/25/19 10/26/19 10/27/19 06:59 06:59 06:59 Output Total 450 Balance -450 Weight 98.1 kg General appearance: PRESENT: no acute distress, obese, well-developed, well-nou rished Head exam: PRESENT: atraumatic, normocephalic Respiratory exam: PRESENT: clear to auscultation michelle. ABSENT: rales, rhonchi, wheezes Cardiovascular exam: PRESENT: RRR. ABSENT: diastolic murmur, rubs, systolic murmur GI/Abdominal exam: PRESENT: normal bowel sounds, soft. ABSENT: distended, g uarding, mass, organolmegaly, rebound, tenderness Extremities exam: PRESENT: full ROM. ABSENT: calf tenderness, clubbing, pedal edema Neurological exam: PRESENT: alert, awake, oriented to person, oriented to place, oriented to time, oriented to situation, CN II-XII grossly intact. ABSENT: motor sensory deficit Skin exam: PRESENT: dry, intact, warm. ABSENT: cyanosis, rash Results Laboratory Results: 10/26/19 07:56 10/26/19 07:56 10/25/19 10/25/19 10/26/19 16:20 18:30 07:56 WBC 14.5 H RBC 5.12 Hgb 15.5 Hct 45.8 MCV 89 MCH 30.3 MCHC 33.9 RDW 14.9 H Plt Count 150 Seg Neutrophils % 87.8 H Sodium Potassium Chloride Carbon Dioxide Anion Gap BUN Creatinine Est GFR ( Amer) Glucose Calcium Magnesium Total Bilirubin AST Alkaline Phosphatase Total Protein Albumin Triglycerides 140 Cholesterol 166.98 LDL Cholesterol Direct 97 VLDL Cholesterol 28.0 HDL Cholesterol 47 Urine Color YELLOW Urine Appearance CLEAR Urine pH 6.0 Ur Specific [place] 1.009 Urine Protein NEGATIVE Urine Glucose (UA) NEGATIVE Urine Ketones NEGATIVE Urine Blood SMALL H Urine RBC (Auto) 1 10/26/19 07:56 WBC RBC Hgb Hct MCV MCH MCHC RDW Plt Count Seg Neutrophils % Sodium 136.9 L Potassium 4.4 Chloride 100 Carbon Dioxide 29 Anion Gap 8 BUN 21 H Creatinine 1.11 Est GFR ( Amer) > 60 Glucose 159 H Calcium 9.7 Magnesium 2.0 Total Bilirubin 1.1 AST 27 Alkaline Phosphatase 75 Total Protein 7.4 Albumin 4.1 Triglycerides Cholesterol LDL Cholesterol Direct VLDL Cholesterol HDL Cholesterol Urine Color Urine Appearance Urine pH Ur Specific [place] Urine Protein Urine Glucose (UA) Urine Ketones Urine Blood Urine RBC (Auto) 10/25/19 14:30 Blood Blood Culture (PCR) - Final 10/25/19 10/25/19 10/26/19 11:25 19:42 01:57 Troponin I 0.052 0.410 0.330 NT-Pro-B Natriuret Pep 278 Impressions: Chest X-Ray 10/25/19 11:22 IMPRESSION: Enlarged cardiac silhouette, central vascular congestion and interstitial edema. More focal right infrahilar opacity possibly asymmetric edema or developing infiltrate. Assessment and Plan - Diagnosis (1) Dyspnea on exertion Is this a current diagnosis for this admission?: Yes Plan: Likely due to COVID-19 or pneumonia however underlying CAD is also highly suspected given history and presentation. Denies any personal family history of CAD. Chest x-ray is positive for cardiomegaly. Minimal ST depression. Mildly elevated troponins. TSH, T3 and T4 WNL. Hemoglobin A1c WNL. Lipid panel WNL. Admit to telemetry, antiplatelets, statins, beta-blockers, CARMELO, sublingual nitroglycerin, IV morphine, consult cardiology for possible stress test for further risk stratification. (2) Hypertension Is this a current diagnosis for this admission?: Yes Plan: Mildly elevated blood pressure. Trace bipedal edema. Takes hydrochlorothiazide and valsartan and verapamil at home. Admit to telemetry, continue CARMELO, continue hydrochlorothiazide, continue verapamil. Monitor vitals. Adjust meds as needed. (3) Hypothyroidism (acquired) Is this a current diagnosis for this admission?: Yes Plan: History of pituitary tumor, status post hypophysectomy. TSH, T3-T4 WNL. Resume home meds. Outpatient PCP follow-up. (4) Hyperlipidemia Qualifiers: Hyperlipidemia type: mixed hyperlipidemia Qualified Code(s): E78.2 - Mixed hyperlipidemia Is this a current diagnosis for this admission?: Yes Plan: Resume statins. Diet and lifestyle modification recommended. TSH, T3 and T4 WNL. Hemoglobin A1c WNL. Lipid panel WNL. (5) Suspected COVID-19 virus infection Is this a current diagnosis for this admission?: Yes Plan: Denies any exposure to anyone with suspected COVID 19 exposure. Denies any fever. Presenting with fatigue, dyspnea on exertion and dry cough. Denies any diarrhea, loss of smell or loss of taste. Admit to IMCU, azithromycin IV, dexamethasone, COVID-19 serology. Contact and droplet isolation.
[2019-10-26] MEDS ORDERED: AZITHROMYCIN 500 MG in DEXTROSE 5%-WATER 250 ML IV SCH (18:00)
[2019-10-26] MEDS: CEFTRIAXONE 1 GM/D5W RTU 1 GM/50 ML RTUPB IV SCH (21:21)
[2019-10-26] MEDS: ATORVASTATIN CALCIUM 40 MG TABLET PO SCH (21:22)
[2019-10-27 06:35] LABS: HEMATOCRIT 45.8 % (37.9-51.0); HEMOGLOBIN 15.1 g/dL (13.5-17.0); MEAN CORPUSCULAR HEMOGLOBIN 29.5 pg (27.0-33.4); MEAN CORPUSCULAR HGB CONC 32.9 g/dL (32.0-36.0); MEAN CORPUSCULAR VOLUME 90 fl (80-97); PLATELET COUNT 173 10^3/uL (150-450); RED BLOOD COUNT 5.11 10^6/uL (4.35-5.55); RED CELL DISTRIBUTION WIDTH 14.9 % (11.5-14.0); WHITE BLOOD COUNT 20.5 10^3/uL (4.0-10.5)
[2019-10-27 06:51] LABS: ALBUMIN 3.8 g/dL (3.5-5.0); ALKALINE PHOSPHATASE 64 U/L (38-126); ANION GAP 7 (5-19); ASPARTATE AMINO TRANSFERASE 24 U/L (17-59); BILIRUBIN,TOTAL 0.7 mg/dL (0.2-1.3); BLOOD UREA NITROGEN 29 mg/dL (7-20); CALCIUM 9.9 mg/dL (8.4-10.2); CARBON DIOXIDE 28 mmol/L (22-30); CHLORIDE 103 mmol/L (98-107); GLUCOSE 147 mg/dL (75-110); POTASSIUM 4.1 mmol/L (3.6-5.0); TOTAL PROTEIN 6.8 g/dL (6.3-8.2)
[2019-10-27] MEDS: DEXAMETHASONE 4 MG TABLET PO SCH (06:53)
[2019-10-27] MEDS: LEVOTHYROXINE SODIUM 0.1 MG TABLET PO SCH (06:53)
[2019-10-27] MEDS: LEVOTHYROXINE SODIUM 0.025 MG TABLET PO SCH (06:54)
[2019-10-27 07:22] LABS: ABSOLUTE LYMPHOCYTES# (MANUAL) 1.2 10^3/uL (0.5-4.7); ABSOLUTE MONOCYTES # (MANUAL) 1.2 10^3/uL (0.1-1.4); BASOPHILS % (MANUAL) 0 % (0-2); EOSINOPHILS % (MANUAL) 0 % (0-6); LYMPHOCYTES % (MANUAL) 4 % (13-45); MONOCYTES % (MANUAL) 6 % (3-13); SEGMENTED NEUTROPHILS % (MAN) 88 % (42-78); TOTAL CELLS COUNTED 100
[2019-10-27 07:25] LABS: ANISOCYTOSIS SLIGHT; PLATELET COMMENT ADEQUATE; PLATELET LARGE PRESENT
[2019-10-27] MEDS: IPRATROPIUM/ALBUTEROL 0.5-2.5 MG/3 ML AMPUL NEB SCH ×3 (07:54→20:22)
[2019-10-27] MEDS: METOPROLOL SUCCINATE 25 MG TAB.SR.24H PO SCH (09:15)
[2019-10-27] MEDS: ASPIRIN 81 MG TABLET, CHEWABLE PO SCH (09:15)
[2019-10-27] MEDS: VALSARTAN 160 MG TABLET PO SCH (09:15)
[2019-10-27] MEDS: ALLOPURINOL 300 MG TABLET PO SCH (09:17)
[2019-10-27] MEDS: FAMOTIDINE 20 MG TABLET PO SCH ×2 (09:17→21:05)
[2019-10-27] MEDS: ENOXAPARIN SODIUM INJ 100 MG/1 ML DISP.SYRIN SUBCUT SCH ×2 (09:17→21:07)
[2019-10-27] MEDS ORDERED: AMLODIPINE BESYLATE 5 MG TABLET PO SCH ×2 (10:00→22:00)
--- NOTE | 2019-10-27 11:56 | RADIOLOGY REPORT (SQ) ---
EXAM DESCRIPTION: CTA CHEST IMAGES COMPLETED DATE/TIME: 10/27/2019 11:32 am REASON FOR STUDY: SOB / Pulmonary Hypertension. COMPARISON: None. TECHNIQUE: CT scan of the chest performed using helical scanning technique with dynamic intravenous contrast injection. Images reviewed with lung, soft tissue and bone windows. Reconstructed coronal and sagittal MPR images reviewed. Additional 3 dimensional post-processing performed to develop Maximal Intensity Projection images (MT P). All images stored on PACS. All CT scanners at this facility use dose modulation, iterative reconstruction, and/or weight based d osing when appropriate to reduce radiation dose to as low as reasonably achievable (ALARA). [facility]: Dose Right [facility]: CareDose [facility]: Dose Right [facility]: Teradose 4D [facility]: The [address] CONTRAST TYPE AND DOSE: Contrast/concentration: Isovue 350.00 mmol/ml; Total Contrast Delivered: 70. 0 ml; Total Saline Delivered: 80.0 ml Contrast bolus optimized for the pulmonary arteries. RENAL FUNCTION: None specified. RADIATION DOSE: CT Rad equipment meets quality standard of care and radiation dose reduction techniq ues were employed. CTDIvol: 14.1 - 15.0 mGy. DLP: 552 mGy-cm. LIMITATIONS: None. FINDINGS: LUNGS AND PLEURA: Nonspecific mosaic attenuation pattern of the lung parenchyma. There is no superimposed consolidation, pleural effusion or pneumothorax. AORTA AND GREAT VESSELS: Evaluation is limited as the contrast bolus was optimized for evaluation of the pulmonary arteries. The ascending thoracic aorta measures 4.4 x 3.9 cm. HEART: Cardiomegaly. The interventricular septum is flattened and the ratio of the right ventricle to the left ventricle is at or greater than 1. There is no mild atherosclerotic calcification of the coronary arteries. There is no pericardial effusion. PULMONARY ARTERIES: Emboli across the bifurcation of the pulmonary artery that extends into the proxi mal lobar and segmental branches to the right upper, right lower, left upper and left lower lobes. HILAR AND MEDIASTINAL STRUCTURES: No adenopathy or mass. HARDWARE: None in the chest. UPPER ABDOMEN: And hiatal hernia THYROID AND OTHER SOFT TISSUES: No mass or adenopathy. BONES: No fracture osseous lesion. 3D MIPS: Confirm above findings. OTHER: No other finding. IMPRESSION: 1. Acute bilateral pulmonary emboli with evidence of right ventricular strain. 2. Mosaic attenuation pattern of the lung parenchyma - the finding can occur in the setting of occlu sive vascular disease (i.e. chronic pulmonary embolism and chronic thromboembolic pulmonary hyperten ari). COMMENT: This report was called to SOPHIA SUAREZ MD at11:40 on 10/27/2019. Quality ID # [id number]: Final reports with documentation of one or more dose reduction techniques (e.g., Au tomated exposure control, adjustment of the mA and/or kV according to patient size, use of iterative reconstruction technique) TECHNICAL DOCUMENTATION: JOB ID: [id number] 2010 [employer]- All Rights Reserved Reading location - IP/workstation name: [facility]-
--- NOTE | 2019-10-27 15:32 | Progress Note ---
Provider Note Provider Note: CARDIOLOGY Progress NOTE by Dr. Sobeida Jennings on 10/27/2019. SUBJECTIVE: The patient states his dyspnea on exertion is improved. He has no PND orthopnea palpitations. There is no arrhythmias seen on the monitor. The patient has no chest pain discomfort. The patient's echocardiogram showed right ventricle dysfunction and moderate pulmonary hypertension. The left ventricle ejection fraction is normal. Please see report below. In view of this pulmonary CT angiogram was ordered and this showed significant amount of pulmonary emboli with significant clot burden. Hence we will continue the patient's Lovenox. PHYSICAL EXAMINATION: At present the patient in no acute distress he is well- built. He is well-nourished. Selected Entries 10/27/19 10/27/19 10/27/19 14:03 14:56 15:32 Temperature 97.5 F Temperature Oral Source Pulse Rate 63 Respiratory 16 Rate Blood Pressure 143/68 H Blood Pressure 93 Mean BP Location Right Arm BP Position Sitting O2 Sat by Pulse 100 Oximetry Oxygen Delivery Nasal Cannula Room Air Method ( includes room air) Oxygen Flow 2 96 Rate HEAD: Is atraumatic normocephalic. EYES: Pupils are equal round regular reactive to light and accommodation. Extraocular movements are normal. There is no conjunctival pallor. There is no scleral icterus. Ears: Tympanic membranes are intact. External auditory canals are clear. NOSE: There is no deviated nasal septum. There is no inflammation nasal mucous membrane. MOUTH: Oral cavity is modified Mallampati class III. Mucous membranes of mouth are moist. Tongue is moist. There is no ulcers.. THROAT: There is no redness of the oropharynx. There is no exudates. SKIN: There is no skin rashes. There is no petechia or ecchymosis. There is no skin lesions. NECK: Is supple. There is no JVD. Carotids are equal there is no bruit. There is no lymphadenopathy. There is no goiter. There is no accessory muscle respiration use. Trachea central. LUNGS: Shows a few bibasilar rales. There is no rhonchi or wheezing. There is some dry crackles in the right middle lobe. There is no murmur of aortic stenosis. There is murmur of mitral regurgitation present. ABDOMEN: Soft. There is no paraspinal megaly. Bowel sounds are well heard. EXTREMITIES: Femorals are well felt. There is no femoral bruits. Leg pulses are well felt. There is no pedal edema. There is no DVT or cellulitis. There is no calf tenderness. There is no cyanosis or clubbing. PLATEMAKER: The patient is conscious awake alert oriented x3 with no focal deficit. PSYCHIATRIC: The patient judgment insight are intact his affect is normal. RECOMMENDATIONS/IMPRESSION: 1. 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 Continue Lovenox at 1 mg/kg subcutaneously every 12 hours. Transition to Eliquis. Note reviewed the patient's right ventricle dysfunction and moderate pulmonary hypertension, would recommend repeating the patient's echocardiogram in 3 months. Would also make sure that the patient does not require home oxygen. Hence we will do a 6-minute walk test. Also would get a sleep study and a PFT to make sure that there is no coexisting COPD or sleep apnea contributing to the patient's pulmonary hypertension. Case discussed with Dr. Yanely JAMES dining manager. Will make an appointment for the patient to be followed up in [place] as an outpatient. 2. Elevated troponin: Most likely the cause is due to the patient's pulmonary emboli. This is now definitely not a non-ST elevation AR. Troponins have trended down. 3. Moderate pulmonary hypertension: Secondary to patient's pulmonary embolism. But as mentioned earlier would recommend that the patient have a PFT and a sleep study. To make sure that COPD and sleep apnea and not contributing to the patient's pulmonary hypertension. We will stop the patient's beta-maria elena and continue the patient on verapamil.. 4. Transient heart failure this is most likely secondary to cardiac depression due to patient's hypoxemia and pulmonary emboli load, and diastolic dysfunction.. The patient systolic function is normal. At present no evidence of heart failure. 5.. Abnormal EKG: Shows with possible old inferior AR. Most likely the patient has silent coronary artery disease. Later would recommend that the patient have an IV Lexiscan Cardiolite stress test which can be done as an outpatient. 6. Right middle lobe pneumonia: Continue antibiotics We will recheck a chest x-ray in the morning. 7. Dyspnea on exertion and fatigue and decreased effort tolerance: This is secondary to patient's pulmonary embolism. Most likely pulmonary embolism is chronic with at present in acute presentation of pulmonary embolism. Continue Lovenox transition to Eliquis. Echo and CTA findings discussed with the patient. Discussed the need for the patient to be on chronic anticoagulation for at least 6 months or longer. The risks and benefits and complications of anticoagulation including risk of bleeding has been discussed with the patient in detail. He is agreeable. Medical decision making is of high complexity. Medical regimen and management plan discussed with the attending provider on the case. 50 minutes spent on this patient including my discussion of the patient with the [employer] dining manager. Will follow. ECHOCARDIOGRAM: The left ventricle is normal in size. There is normal left ventricular wall thickness. LV EF is 65% Left ventricular systolic function is normal. Doppler measurements suggest impaired left ventricular relaxation, which is associated with grade I/IV or mild diastolic dysfunction The left ventricular wall motion is normal. There is no thrombus. cannot assess ASD,VSD or PFO. The right ventricle is not well visualized secondary to technical limitations The right atrium is mildly dilated. The left atrial size is normal. There is no evidence of mitral valve prolapse. There is no vegetation seen on the mitral valve. There is no mitral valve stenosis. There is no mitral regurgitation noted. There is no LVOT obstruction. There is a mild amount of aortic regurgitation There is no tricuspid stenosis. There is a moderate amount of tricuspid regurgitation There is moderate pulmonary hypertension by echo RVSP is 50 mm of HG , with RA mean of 10.This may be an underestimation of RVSP due to TR jet undersampling. There is no pulmonic valvular stenosis.
--- NOTE | 2019-10-27 15:49 | XCELERA REPORT ---
[address] [address] Transthoracic Echocardiogram Report Name: MONTSE DUBOIS Age: 83 yrs Gender: Male : 1935 Patient Status: Inpatient Patient Location: [address] [place] [address] Study Date: 10/27/2019 09:48 AM Height: 72 in Weight: 216 lb BSA: 2.2 m2 Procedure: A two-dimensional transthoracic echocardiogram with color flow and Doppler was performed. Study Quality: Poor. Reason For Study: CHF History: CHF. Ordering Physician: SOBEIDA SUAREZ Performed By: Daphne Salvador Interpretation Summary The left ventricle is normal in size. There is normal left ventricular wall thickness. LV EF is 65% Left ventricular systolic function is normal. Doppler measurements suggest impaired left ventricular relaxation, which is associated with grade I/IV or mild diastolic dysfunction The left ventricular wall motion is normal. There is no thrombus. cannot assess ASD,VSD or PFO. The right ventricle is not well visualized secondary to technical limitations The right atrium is mildly dilated. The left atrial size is normal. There is no evidence of mitral valve prolapse. There is no vegetation seen on the mitral valve. There is no mitral valve stenosis. There is no mitral regurgitation noted. There is no LVOT obstruction. There is a mild amount of aortic regurgitation There is no tricuspid stenosis. There is a moderate amount of tricuspid regurgitation There is moderate pulmonary hypertension by echo RVSP is 50 mm of HG , with RA mean of 10.This may be an underestimation of RVSP due to TR jet undersampling. There is no pulmonic valvular stenosis. There is a mild to moderate amount of pulmonic regurgitation The aortic root is not well visualized but is probably normal size. The inferior vena cava was not well visualized There is no pericardial effusion. MMode/2D Measurements & Calculations RVDd: 3.3 cm LVIDd: 3.7 cm FS: 36.0 % Ao root diam: 3.7 cm IVSd: 1.1 cm LVIDs: 2.4 cm EDV(Teich): 57.7 ml Ao root area: 10.9 cm2 LVPWd: 1.1 cm ESV(Teich): 19.3 ml LA dimension: 3.4 cm EF(Teich): 66.4 % Doppler Measurements & Calculations MV E max trang: MV P1/2t max trang: Ao V2 max: AI max trang: 73.5 cm/sec 73.1 cm/sec 101.1 cm/sec 457.4 cm/sec MV A max trang: MV P1/2t: 57.1 msec Ao max PG: AI max P.1 cm/sec MVA(P1/2t): 3.9 cm2 4.1 mmHg 83.7 mmHg MV E/A: 1.1 MV dec slope: AI dec slope: 256.2 cm/sec2 374.7 cm/sec2 AI P1/2t: MV dec time: 522.9 msec 0.19 sec LV V1 max PG: PA V2 max: PI end-d trang: TR max trang: 3.3 mmHg 73.1 cm/sec 124.9 cm/sec 313.6 cm/sec LV V1 max: PA max P.1 mmHg TR max P.3 cm/sec 39.3 mmHg AV P1/2t-pr_phl: MV P1/2t-pr_phl: 522.9 msec 57.1 msec Left Ventricle The left ventricle is normal in size. There is normal left ventricular wall thickness. LV EF is 65%. Left ventricular systolic function is normal. Doppler measurements suggest impaired left ventricular relaxation, which is associated with grade I/IV or mild diastolic dysfunction. The left ventricular wall motion is normal. There is no thrombus. cannot assess ASD,VSD or PFO. Right Ventricle The right ventricle is not well visualized secondary to technical limitations. Most likey moderately dilated RV with moderately decreased RVEF. Atria The right atrium is mildly dilated. The left atrial size is normal. Mitral Valve There is no evidence of mitral valve prolapse. There is no vegetation seen on the mitral valve. There is no mitral valve stenosis. There is no mitral regurgitation noted. Aortic Valve There is no aortic valvular vegetation. There is no aortic valve stenosis. There is no LVOT obstruction. There is a mild amount of aortic regurgitation. Tricuspid Valve There is no tricuspid stenosis. There is a moderate amount of tricuspid regurgitation. There is moderate pulmonary hypertension by echo. RVSP is 50 mm of HG , with RA mean of 10.This may be an underestimation of RVSP due to TR jet undersampling. Pulmonic Valve There is no pulmonic valvular stenosis. There is a mild to moderate amount of pulmonic regurgitation. Great Vessels The aortic root is not well visualized but is probably normal size. The inferior vena cava was not well visualized. Effusions There is no pericardial effusion. Electronically signed by: Sobeida Suarez 10/27/2019 03:48 PM CC: SOBEIDA SUAREZ, Sobeida
--- NOTE | 2019-10-27 17:15 | PDOC PROGRESS REPORT ---
Subjective Progress Note for:: 10/27/19 Subjective:: MONTSE DUBOIS is a 83 year old male past medical history of pituitary tumor status post transsphenoidal hypophysectomy, acquired hypothyroidism, hypertension, gout, hyperlipidemia, presenting to ED complaining of recent onset of extreme fatigue, dyspnea on exertion, and nonproductive cough. At baseline patient is very healthy does not have any dyspnea on exertion and is very independent, however recently he gets winded very easily and has to rest for 5 to 10 minutes before he can do any activities. Dyspnea on exertion is not associated with any chest pain, palpitation, lightheadedness or syncope or presyncope. Patient denies any history personal or family history of CAD, COPD, arrhythmias. Patient denies any recent travel, any exposure to anyone suspected of being exposed to COVID-19. In ED he was noted to be hypertensive, tachypneic, and hypoxic, troponins were mildly elevated, and EKG read as sinus rhythm with nonspecific anterior ventricular conduction delay. Minimal ST depression. Chest x-ray enlarged cardiac silhouette, central vascular congestion and interstitial edema. More focal right infra hilar opacity possibly asymmetric edema or developing infiltrate. Denies any headache, vision changes, weight changes, orthopnea, paroxysmal nocturnal dyspnea, palpitation, lightheadedness, chest pain, nausea, vomiting, diarrhea, constipation, abdominal pain, urinary symptoms. 10/26/2019. No acute events overnight. Patient reporting significant improvement of her fatigue and shortness of breath. Able to walk to the restroom and brush his teeth without any significant shortness of breath. Denies any fever, chills, nausea, vomiting, diarrhea, constipation or any urinary symptoms. 10/27/2019. No acute events overnight. Saw patient twice today, sitting with no apparent distress, reporting mild improvement of respiratory symptoms, p.o. tolerant, ambulatory, denies any chest pain, fever, chills, nausea, vomiting, diarrhea, constipation or any urinary symptoms. Reason For Visit: DELVALLE,ELEVATED TROPS,FATIGUE Physical Exam Vital Signs: Temp Pulse Resp BP Pulse Ox 97.5 F 89 16 143/68 H 100 10/27/19 14:56 10/27/19 15:32 10/27/19 14:56 10/27/19 14:56 10/27/19 14:56 Intake & Output 0710/27/19 10/28/19 06:59 06:59 06:59 Intake Total 600 Output Total 450 0 Balance -450 600 Weight 98.1 kg 98.5 kg General appearance: PRESENT: no acute distress, obese, well-developed, well- nourished Head exam: PRESENT: atraumatic, normocephalic Respiratory exam: PRESENT: clear to auscultation michelle. ABSENT: rales, rhonchi, wheezes Cardiovascular exam: PRESENT: RRR. ABSENT: diastolic murmur, rubs, systolic murmur Pulses: PRESENT: normal dorsalis pedis pul GI/Abdominal exam: PRESENT: normal bowel sounds, soft. ABSENT: distended, guarding, mass, organolmegaly, rebound, tenderness Neurological exam: PRESENT: alert, awake, oriented to person, oriented to place, oriented to time, oriented to situation, CN II-XII grossly intact. ABSENT: motor sensory deficit Skin exam: PRESENT: dry, intact, warm. ABSENT: cyanosis, rash Results Laboratory Results: 10/27/19 05:36 10/27/19 05:36 10/27/19 10/27/19 05:36 05:36 WBC 20.5 H RBC 5.11 Hgb 15.1 Hct 45.8 MCV 90 MCH 29.5 MCHC 32.9 RDW 14.9 H Plt Count 173 Seg Neutrophils % Not Reportable Sodium 138.0 Potassium 4.1 Chloride 103 Carbon Dioxide 28 Anion Gap 7 BUN 29 H Creatinine 1.07 Est GFR ( Amer) > 60 Glucose 147 H Calcium 9.9 Total Bilirubin 0.7 AST 24 Alkaline Phosphatase 64 Total Protein 6.8 Albumin 3.8 10/25/19 18:30 Clean Catch Midstream Urine Culture - Final NO GROWTH 2 DAYS 10/25/19 14:30 Blood Blood Culture (PCR) - Final 10/25/19 14:30 Blood Blood Culture - Final Bacillus Sp. Not Anthracis 10/25/19 10/25/19 10/26/19 11:25 19:42 01:57 Troponin I 0.052 0.410 0.330 NT-Pro-B Natriuret Pep 278 10/27/19 05:36 Troponin I 0.057 NT-Pro-B Natriuret Pep Impressions: Chest X-Ray 10/25/19 11:22 IMPRESSION: Enlarged cardiac silhouette, central vascular congestion and interstitial edema. More focal right infrahilar opacity possibly asymmetric edema or developing infiltrate. Chest/Abdomen CTA 10/27/19 00:00 IMPRESSION: 1. Acute bilateral pulmonary emboli with evidence of right ventricular strain. 2. Mosaic attenuation pattern of the lung parenchyma - the finding can occur in the setting of occlusive vascular disease (i.e. chronic pulmonary embolism and chronic thromboembolic pulmonary hypertension). Assessment and Plan - Diagnosis (1) Pulmonary embolus Qualifiers: Chronicity: acute Acute cor pulmonale presence: with acute cor pulmonale Is this a current diagnosis for this admission?: Yes Plan: Denies any history of DVT, malignancy, recent hospitalization, immobilization or trauma. Patient has been having worsening dyspnea on exertion for the last 6 months. Not sure how acute this PE is. 2D echo LVEF 65%. Mild diastolic dysfunction. CTA chest positive for acute bilateral pulmonary emboli with evidence of right ventricular strain. Denies any chest pain. SPO2 WNL on RA. Vitals stable. Continue therapeutic Lovenox. Switch to novel anticoagulants upon discharge. Dr. Montano college basketball coach aware, he is arranging pulmonology follow-up for him upon discharge appreciate his assistance. (2) Dyspnea on exertion Is this a current diagnosis for this admission?: Yes Plan: Most likely due to PE. COVID-19 negative. 2D echo LVEF 65%. Mild diastolic dysfunction. Denies any personal family history of CAD. Chest x-ray is positive for c ardiomegaly. Minimal ST depression. Mildly elevated troponins. TSH, T3 and T4 WNL. Hemoglobin A1c WNL. Lipid panel WNL. Continue telemetry, antiplatelets, statins, beta-blockers, CARMELO, sublingual nitroglycerin, IV morphine, consult cardiology for possible stress test for further risk stratification. (3) Hypertension Is this a current diagnosis for this admission?: Yes Plan: Normotensive. Euvolemic. Continue valsartan. Continue metoprolol. DC verapamil. Monitor vitals. Adjust meds as needed. (4) Hypothyroidism (acquired) Is this a current diagnosis for this admission?: Yes Plan: History of pituitary tumor, status post hypophysectomy. TSH, T3-T4 WNL. Resume home meds. Outpatient PCP follow-up. (5) Hyperlipidemia Qualifiers: Hyperlipidemia type: mixed hyperlipidemia Qualified Code(s): E78.2 - Mixed hyperlipidemia Is this a current diagnosis for this admission?: Yes Plan: Resume statins. Diet and lifestyle modification recommended. TSH, T3 and T4 WNL. Hemoglobin A1c WNL. Lipid panel WNL. (6) Suspected COVID-19 virus infection Is this a current diagnosis for this admission?: Yes Plan: COVID-19 serology negative. Denies any exposure to anyone with suspected COVID 19 exposure. Denies any fever. Presenting with fatigue, dyspnea on exertion and dry cough. Denies any diarrhea, loss of smell or loss of taste. DC azithromycin and dexamethasone. (7) Positive culture finding Is this a current diagnosis for this admission?: Yes Plan: Blood culture 1/2 positive for Bacillus species, no Anathracis. Determined to be contamination.
[2019-10-27] MEDS: CEFTRIAXONE 1 GM/D5W RTU 1 GM/50 ML RTUPB IV SCH (17:45)
[2019-10-27] MEDS: ATORVASTATIN CALCIUM 40 MG TABLET PO SCH (21:05)
[2019-10-27] MEDS: VERAPAMIL HCL 120 MG TABLET.SA PO SCH (21:11)
[2019-10-28] MEDS: LEVOTHYROXINE SODIUM 0.025 MG TABLET PO SCH (06:10)
[2019-10-28] MEDS: LEVOTHYROXINE SODIUM 0.1 MG TABLET PO SCH (06:10)
[2019-10-28 06:51] LABS: HEMATOCRIT 43.9 % (37.9-51.0); HEMOGLOBIN 14.7 g/dL (13.5-17.0); MEAN CORPUSCULAR HGB CONC 33.4 g/dL (32.0-36.0); MEAN CORPUSCULAR VOLUME 90 fl (80-97); PLATELET COUNT 196 10^3/uL (150-450); WHITE BLOOD COUNT 20.2 10^3/uL (4.0-10.5)
[2019-10-28] MEDS: IPRATROPIUM/ALBUTEROL 0.5-2.5 MG/3 ML AMPUL NEB SCH ×3 (08:06→19:36)
[2019-10-28] MEDS: VALSARTAN 160 MG TABLET PO SCH (09:55)
[2019-10-28] MEDS: FAMOTIDINE 20 MG TABLET PO SCH ×2 (09:55→21:42)
[2019-10-28] MEDS: APIXABAN 5 MG TABLET PO SCH ×2 (09:56→17:18)
[2019-10-28] MEDS: LEVOFLOXACIN 750 MG TABLET PO SCH (09:56)
[2019-10-28] MEDS: ENOXAPARIN SODIUM INJ 100 MG/1 ML DISP.SYRIN SUBCUT SCH (09:56)
[2019-10-28] MEDS: ALLOPURINOL 300 MG TABLET PO SCH (09:56)
[2019-10-28] MEDS: ASPIRIN 81 MG TABLET, CHEWABLE PO SCH (09:56)
[2019-10-28] MEDS: VERAPAMIL HCL 120 MG TABLET.SA PO SCH ×2 (09:58→21:42)
--- NOTE | 2019-10-28 15:15 | Progress Note ---
Provider Note Provider Note: CARDIOLOGY PROGRESS NOTE by Dr. Wood Alonzo on 10/28/2019. OBJECTIVE: The patient states his shortness of breath and dyspnea on exertion has improved a lot. In fact he has no shortness of breath at rest. There is no PND orthopnea or leg edema. There is no chest pain or discomfort. There is no arrhythmias seen on the monitor. There is no bleeding on Eliquis. His Lovenox has been stopped and the patient is started on Eliquis. There is no TIA CVA symptoms. There is no recurrent symptoms suggestive of recurrence of pulmonary embolism. Walk test is negative for hypoxemia. Also his nocturnal oximetry sat saturation did not drop below 93%. Hence patient does not require home oxygen. PHYSICAL EXAMINATION: The patient is well-built and well-nourished in no acute distress. Selected Entries 10/28/19 16:11 Temperature 97.6 F Temperature Oral Source Respiratory 16 Rate Blood Pressure 115/55 L Blood Pressure 75 Mean BP Location Right Arm BP Position Sitting O2 Sat by Pulse 100 Oximetry Oxygen Delivery Room Air Method HEAD: Is atraumatic normocephalic. EYES: Pupils are equal round regular reactive to light and accommodation. Extraocular movements are normal. There is no conjunctival pallor. There is no scleral icterus. Ears: Tympanic membra edmund are intact. External auditory canals are clear. NOSE: There is no deviated nasal septum. There is no inflammation nasal mucous membrane. MOUTH: Oral cavity is modified Mallampati class III. Mucous membranes of mouth are moist. Tongue is moist. There is no ulcers.. THROAT: There is no redness of the oropharynx. There is no exudates. SKIN: There is no skin rashes. There is no petechia or ecchymosis. There is no skin lesions. NECK: Is supple. There is no JVD. Carotids are equal there is no bruit. There is no lymphadenopathy. There is no goiter. There is no accessory muscle respiration use. Trachea central. LUNGS: Shows a few bibasilar rales. There is no rhonchi or wheezing. There is some dry crackles in the right middle lobe. There is no murmur of aortic stenosis. There is murmur of mitral regurgitation present. ABDOMEN: Soft. There is no paraspinal megaly. Bowel sounds are well heard. EXTREMITIES: Femorals are well felt. There is no femoral bruits. Leg pulses are well felt. There is no pedal edema. There is no DVT or cellulitis. There is no calf tenderness. There is no cyanosis or clubbing. FLIGHT SERVICE SPECIALIST: The patient is conscious awake alert oriented x3 with no focal deficit. PSYCHIATRIC: The patient judgment insight are intact his affect is normal. RECOMMENDATIONS/IMPRESSION: 1. 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 The patient has been started on Eliquis. As mentioned earlier we will get a PFT as an outpatient and also get a sleep study as an outpatient. We will also repeat echo in 3 months, to assess pulmonary hypertension. 2. Elevated troponin: Most likely the cause is due to the patient's pulmonary emboli. This is now definitely not a non-ST elevation MT. Troponins have trend ed down. 3. Moderate pulmonary hypertension: Secondary to patient's pulmonary embolism. But as mentioned earlier would recommend that the patient have a PFT and a sleep study. To make sure that COPD and sleep apnea and not contributing to the patient's pulmonary hypertension. We will stop the patient's beta-maria elena and continue the patient on verapamil.. 4. Transient heart failure this is most likely secondary to cardiac depression due to patient's hypoxemia and pulmonary emboli load, and diastolic dysfunction.. The patient systolic function is normal. At present no evidence of heart failure. 5.. Abnormal EKG: Shows with possible old inferior MT. Most likely the patient has silent coronary artery disease. Later would recommend that the patient have an IV Lexiscan Cardiolite stress test which can be done as an outpatient. 6. Right middle lobe pneumonia: Continue antibiotics We will recheck a chest x-ray . 7. Dyspnea on exertion and fatigue and decreased effort tolerance: This is secondary to patient's pulmonary embolism. Most likely pulmonary embolism is chronic with at present in acute presentation of pulmonary embolism. The patient gets his prescriptions at [facility]. This is closed on Sundays. Hence in order to make sure the patient has continued supply of Eliquis I called in the prescription to the pharmacy today and I have asked the to pick it up. The called me back and stated that she has Eliquis hence we will discharge the patient in the a.m. Medications reviewed. Medical medical regimen and management plan discussed with attending The case. Medical decision making is of high complexity. 60 minutes spent on this patient with more than 50% of time spent in direct patient care. Will follow.
--- NOTE | 2019-10-28 15:28 | PDOC PROGRESS REPORT ---
Subjective Progress Note for:: 10/28/19 Subjective:: MONTSE DUBOIS is a 83 year old male past medical history of pituitary tumor status post transsphenoidal hypophysectomy, acquired hypothyroidism, hypertension, gout, hyperlipidemia, presenting to ED complaining of recent onset of extreme fatigue, dyspnea on exertion, and nonproductive cough. At baseline patient is very healthy does not have any dyspnea on exertion and is very independent, however recently he gets winded very easily and has to rest for 5 to 10 minutes before he can do any activities. Dyspnea on exertion is not associated with any chest pain, palpitation, lightheadedness or syncope or presyncope. Patient denies any history personal or family history of CAD, COPD, arrhythmias. Patient denies any recent travel, any exposure to anyone suspected of being exposed to COVID-19. In ED he was noted to be hypertensive, tachypneic, and hypoxic, troponins were mildly elevated, and EKG read as sinus rhythm with nonspecific anterior ventricular conduction delay. Minimal ST depression. Chest x-ray enlarged cardiac silhouette, central vascular congestion and interstitial edema. More focal right infra hilar opacity possibly asymmetric edema or developing infiltrate. Denies any headache, vision changes, weight changes, orthopnea, paroxysmal nocturnal dyspnea, palpitation, lightheadedness, chest pain, nausea, vomiting, diarrhea, constipation, abdominal pain, urinary symptoms. 10/26/2019. No acute events overnight. Patient reporting significant improvement of her fatigue and shortness of breath. Able to walk to the restroom and brush his teeth without any significant shortness of breath. Denies any fever, chills, nausea, vomiting, diarrhea, constipation or any urinary symptoms. 10/27/2019. No acute events overnight. Saw patient twice today, sitting with no apparent distress, reporting mild improvement of respiratory symptoms, p.o. tolerant, ambulatory, denies any chest pain, fever, chills, nausea, vomiting, diarrhea, constipation or any urinary symptoms. 10/28/2019. No acute events overnight. Comfortably sitting up in distress, dyspnea on exertion improving, had a 6-minute walk yesterday, did not need supplemental oxygen, denies any chest pain, nausea, vomiting, diarrhea, constipation or any urinary symptoms. Possible DC home tomorrow. Reason For Visit: DELVALLE,ELEVATED TROPS,FATIGUE Physical Exam Vital Signs: Temp Pulse Resp BP Pulse Ox 97.4 F 60 16 132/67 H 96 10/28/19 11:44 10/28/19 13:46 10/28/19 13:46 10/28/19 11:44 10/28/19 13:46 Pulse Oximeter Nocturnal Start: 10/27/19 15:35 Freq: RTQ4 Status: Complete Protocol: Document 10/28/19 03:54 JONAH (Rec: 10/28/19 03:54 JONAH [id number]) Nocturnal Pulse Oximetry Equipment Usage Equipment in Use Oxygen Delivery Method (includes room Room Air air) O2 Sat by Pulse Oximetry (92-100) 93 Continuous SpO2 Machine # 7 Intake & Output 10/27/19 10/28/19 10/29/19 06:59 06:59 06:59 Intake Total 900 760 355 Output Total 0 Balance 900 760 355 Weight 98.5 kg 102.4 kg General appearance: PRESENT: obese Head exam: PRESENT: atraumatic, normocephalic Neck exam: ABSENT: carotid bruit, JVD, lymphadenopathy, thyromegaly Respiratory exam: PRESENT: clear to auscultation michelle. ABSENT: rales, rhonchi, wheezes Cardiovascular exam: PRESENT: RRR. ABSENT: diastolic murmur, rubs, systolic murmur GI/Abdominal exam: PRESENT: normal bowel sounds, soft. ABSENT: distended, guard ing, mass, organolmegaly, rebound, tenderness Neurological exam: PRESENT: alert, awake, oriented to person, oriented to place, oriented to time, oriented to situation, CN II-XII grossly intact. ABSENT: motor sensory deficit Skin exam: PRESENT: dry, intact, warm. ABSENT: cyanosis, rash Results Laboratory Results: 10/28/19 06:25 10/27/19 05:36 10/28/19 06:25 WBC 20.2 H RBC 4.90 Hgb 14.7 Hct 43.9 MCV 90 MCH 30.0 MCHC 33.4 RDW 15.0 H Plt Count 196 10/25/19 18:30 Clean Catch Midstream Urine Culture - Final NO GROWTH 2 DAYS 10/25/19 10/25/19 10/26/19 11:25 19:42 01:57 Troponin I 0.052 0.410 0.330 NT-Pro-B Natriuret Pep 278 10/27/19 05:36 Troponin I 0.057 NT-Pro-B Natriuret Pep Impressions: Chest X-Ray 10/25/19 11:22 IMPRESSION: Enlarged cardiac silhouette, central vascular congestion and interstitial edema. More focal right infrahilar opacity possibly asymmetric edema or developing infiltrate. Chest/Abdomen CTA 10/27/19 00:00 IMPRESSION: 1. Acute bilateral pulmonary emboli with evidence of right ventricular strain. 2. Mosaic attenuation pattern of the lung parenchyma - the finding can occur in the setting of occlusive vascular disease (i.e. chronic pulmonary embolism and chronic thromboembolic pulmonary hypertension). Assessment and Plan - Diagnosis (1) Pulmonary embolus Qualifiers: Chronicity: acute Acute cor pulmonale presence: with acute cor pulmonale Is this a current diagnosis for this admission?: Yes Plan: Denies any history of DVT, malignancy, recent hospitalization, immobilization or trauma. Patient has been having worsening dyspnea on exertion for the last 6 months. Not sure how acute this PE is. 2D echo LVEF 65%. Mild diastolic dysfunction. CTA chest positive for acute bilateral pulmonary emboli with evidence of right ventricular strain. Denies any chest pain. SPO2 WNL on RA. Vitals stable. DC Lovenox. Continue Eliquis 5 mg p.o[address] twice daily. Dr. Montano sales research analyst aware, he is arranging pulmonology follow-up for him upon discharge appreciate his assistance. (2) Dyspnea on exertion Is this a current diagnosis for this admission?: Yes Plan: Most likely due to PE. COVID-19 negative. 2D echo LVEF 65%. Mild diastolic dysfunction. Denies any personal family history of CAD. Chest x-ray is positive for cardiomegaly. Minimal ST depression. Mildly elevated troponins. TSH, T3 and T4 WNL. Hemoglobin A1c WNL. Lipid panel WNL. Continue telemetry, antiplatelets, statins, beta-blockers, CARMELO, sublingual nitroglycerin, IV morphine, consult cardiology for possible stress test for further risk stratification. (3) Hypertension Is this a current diagnosis for this admission?: Yes Plan: Normotensive. Euvolemic. Continue valsartan. Continue metoprolol. DC verapamil. Monitor vitals. Adjust meds as needed. (4) Hypothyroidism (acquired) Is this a current diagnosis for this admission?: Yes Plan: History of pituitary tumor, status post hypophysectomy. TSH, T3-T4 WNL. Resume home meds. Outpatient PCP follow-up. (5) Hyperlipidemia Qualifiers: Hyperlipidemia type: mixed hyperlipidemia Qualified Code(s): E78.2 - Mixed hyperlipidemia Is this a current diagnosis for this admission?: Yes Plan: Resume statins. Diet and lifestyle modification recommended. TSH, T3 and T4 WNL. Hemoglobin A1c WNL. Lipid panel WNL. (6) Suspected COVID-19 virus infection Is this a current diagnosis for this admission?: Yes Plan: COVID-19 serology negative. Denies any exposure to anyone with suspected COVID 19 exposure. Denies any fever. Presenting with fatigue, dyspnea on exertion and dry cough. Denies any diarrhea, loss of smell or loss of taste. DC azithromycin and dexamethasone. (7) Positive culture finding Is this a current diagnosis for this admission?: Yes Plan: Blood culture 1/2 positive for Bacillus species, no Anathracis. Determined to be contamination.
[2019-10-28] MEDS: ATORVASTATIN CALCIUM 40 MG TABLET PO SCH (21:42)
--- NOTE | 2019-10-28 23:43 | RADIOLOGY REPORT (SQ) ---
EXAM DESCRIPTION: XR CHEST 1 VIEW COMPLETED DATE/TME: 10/28/2019 00:00 CLINICAL HISTORY: 83 years, Male, RML pneumonia COMPARISON: X-ray chest 10/25/2019 NUMBER OF VIEWS: TECHNIQUE: LIMITATIONS: None. FINDINGS: There is cardiomegaly. There is possible mild pulmonary vascular congestion. There is patchy infiltrate in the right mid lung, laterally. This infiltrate is either unchanged, or slightly improved, as compared with the prior chest x-ray. There is no significant sized pleural effusion. IMPRESSION: Cardiomegaly with possible mild pulmonary vascular congestion. Patchy infiltrate in the right mid lung. Diagnostic possibilities include pulmonary edema and pneumonia. copyright 2010 [employer]- All Rights Reserved
[2019-10-29] MEDS: LEVOTHYROXINE SODIUM 0.025 MG TABLET PO SCH (05:21)
[2019-10-29] MEDS: LEVOTHYROXINE SODIUM 0.1 MG TABLET PO SCH (05:21)
[2019-10-29 05:36] LABS: ABSOLUTE BASOPHILS # (AUTO) 0.1 10^3/uL (0.0-0.2); ABSOLUTE EOSINOPHILS # (AUTO) 0.3 10^3/uL (0.0-0.6); ABSOLUTE LYMPHOCYTES (AUTO) 2.9 10^3/uL (0.5-4.7); ABSOLUTE NEUT (AUTO) 7.5 10^3/uL (1.7-8.2); BASOPHILS % (AUTO) 0.5 % (0-2); EOSINOPHILS % (AUTO) 2.4 % (0-6); HEMATOCRIT 41.9 % (37.9-51.0); HEMOGLOBIN 13.8 g/dL (13.5-17.0); LYMPHOCYTES % (AUTO) 24.9 % (13-45); MEAN CORPUSCULAR HEMOGLOBIN 29.8 pg (27.0-33.4); MEAN CORPUSCULAR VOLUME 90 fl (80-97); MONOCYTES % (AUTO) 8.8 % (3-13); PLATELET COUNT 182 10^3/uL (150-450); RED BLOOD COUNT 4.64 10^6/uL (4.35-5.55); RED CELL DISTRIBUTION WIDTH 15.1 % (11.5-14.0); SEGMENTED NEUTROPHILS % (AUTO) 63.4 % (42-78); TOTAL CELLS COUNTED % (AUTO) 100 %; WHITE BLOOD COUNT 11.8 10^3/uL (4.0-10.5)
[2019-10-29 05:57] LABS: ANION GAP 5 (5-19); BLOOD UREA NITROGEN 28 mg/dL (7-20); CARBON DIOXIDE 27 mmol/L (22-30); CHLORIDE 105 mmol/L (98-107); GLUCOSE 99 mg/dL (75-110); POTASSIUM 4.1 mmol/L (3.6-5.0)
[2019-10-29] MEDS: IPRATROPIUM/ALBUTEROL 0.5-2.5 MG/3 ML AMPUL NEB SCH (08:04)
[2019-10-29] MEDS: ALLOPURINOL 300 MG TABLET PO SCH (10:41)
[2019-10-29] MEDS: LEVOFLOXACIN 750 MG TABLET PO SCH (10:41)
[2019-10-29] MEDS: FAMOTIDINE 20 MG TABLET PO SCH (10:41)
[2019-10-29] MEDS: APIXABAN 5 MG TABLET PO SCH (10:41)
[2019-10-29] MEDS: VALSARTAN 160 MG TABLET PO SCH (10:42)
[2019-10-29] MEDS: ASPIRIN 81 MG TABLET, CHEWABLE PO SCH (10:42)
[2019-10-29] MEDS: VERAPAMIL HCL 120 MG TABLET.SA PO SCH (10:42)
[2019-10-29 11:04] VITALS: BP 132/68
--- NOTE | 2019-10-29 13:03 | PDOC DISCHARGE SUMMARY ---
Impression - Admit/DC Date/PCP Admission Date/Primary Care Provider: 10/25/19 15:25 DAVID ZARATE MD Discharge Date: 10/29/19 - Discharge Diagnosis (1) Pulmonary embolus Is this a current diagnosis for this admission?: Yes (2) Dyspnea on exertion Is this a current diagnosis for this admission?: Yes (3) Hypertension Is this a current diagnosis for this admission?: Yes (4) Hypothyroidism (acquired) Is this a current diagnosis for this admission?: Yes (5) Hyperlipidemia Is this a current diagnosis for this admission?: Yes (6) Suspected COVID-19 virus infection Is this a current diagnosis for this admission?: Yes (7) Positive culture finding Is this a current diagnosis for this admission?: Yes (8) Bilateral pneumonia Is this a current diagnosis for this admission?: Yes (9) Elevated troponin Is this a current diagnosis for this admission?: Yes - Additional Information Discharge Diet: As Tolerated Discharge Activity: Activity As Tolerated, Balance Activity w/Rest Referrals: DAVID ZARATE MD [Primary Care Provider] - Follow up as needed SOPHIA SUAREZ MD [ACTIVE STAFF] - Prescriptions: Verapamil HCl [Calan Sr 120 mg Tablet.sa] 120 mg PO Q12 30 Days #602 tablet.sa Apixaban [Eliquis 5 mg Tablet] 5 mg PO BID 30 Days #60 tablet Levofloxacin [Levaquin 750 mg Tablet] 750 mg PO DAILY 3 Days #3 tablet Home Medications: Allopurinol [Zyloprim 300 mg Tablet] 300 mg PO DAILY 10/25/19 Atorvastatin Calcium [Lipitor 20 mg Tablet] 20 mg PO QHS 10/25/19 Levothyroxine Sodium [Synthroid] 125 mcg PO Q6AM 10/25/19 Valsartan/Hydrochlorothiazide [Valsartan-Hctz 320-25 mg Tab] 1 each PO DAILY 10/25/19 Apixaban [Eliquis 5 mg Tablet] 5 mg PO BID 30 Days #60 tablet 10/29/19 Levofloxacin [Levaquin 750 mg Tablet] 750 mg PO DAILY 3 Days #3 tablet 10/29/19 Verapamil HCl [Calan Sr 120 mg Tablet.sa] 120 mg PO Q12 30 Days #602 tablet.sa 10/29/19 History of Present Illiness History of Present Illness: MONTSE DUBOIS is a 83 year old male past medical history of pituitary tumor status post transsphenoidal hypophysectomy, acquired hypothyroidism, hypertension, gout, hyperlipidemia, presenting to ED complaining of recent onset of extreme fatigue, dyspnea on exertion, and nonproductive cough. At baseline patient is very healthy does not have any dyspnea on exertion and is very independent, however recently he gets winded very easily and has to rest for 5 to 10 minutes before he can do any activities. Dyspnea on exertion is not associated with any chest pain, palpitation, lightheadedness or syncope or presyncope. Patient denies any history personal or family history of CAD, COPD, arrhythmias. Patient denies any recent travel, any exposure to anyone suspected of being exposed to COVID-19. In ED he was noted to be hypertensive, tachypneic, and hypoxic, troponins were mildly elevated, and EKG read as sinus rhythm with nonspecific anterior ventricular conduction delay. Minimal ST depression. Chest x-ray enlarged cardiac silhouette, central vascular congestion and interstitial edema. More focal right infra hilar opacity possibly asymmetric edema or developing infiltrate. Denies any headache, vision changes, weight changes, orthopnea, paroxysmal nocturnal dyspnea, palpitation, lightheadedness, chest pain, nausea, vomiting, diarrhea, constipation, abdominal pain, urinary symptoms. Hospital Course Hospital Course: (1) Pulmonary embolus Denies any history of DVT, malignancy, recent hospitalization, immobilization or trauma. Patient has been having worsening dyspnea on exertion for the last 6 months. Not sure how acute this PE is. 2D echo LVEF 65%. Mild diastolic dysfunction. CTA chest positive for acute bilateral pulmonary emboli with evidence of right ventricular strain. Denies any chest pain. SPO2 WNL on RA. Vitals stable. Initially was started on Lovenox 1 mg/kg twice daily and switched to Eliquis [address] twice daily. Dr. Montano beater and pulper feeder aware, he kindly arranged for him to follow-up with pulmonology for PFT and sleep study. He also make sure that his who is also his patient picked up his Eliquis before him being discharged. (2) Dyspnea on exertion Much improved since admission, still getting winded easily. Most likely due to PE. COVID-19 negative. 2D echo LVEF 65%. Mild diastolic dysfunction. Denied any personal family history of CAD. Chest x-ray is positive for cardiomegaly. Minimal ST depression. Mildly elevated troponins. TSH, T3 and T4 WNL. Hemoglobin A1c WNL. Lipid panel WNL. Was a started on antiplatelets, statins, beta-blockers, CARMELO, sublingual nitroglycerin, IV morphine. Cardiology consulted. Appreciate their assistance. Please refer to note. (3) Hypertension Normotensive. Euvolemic. Continue valsartan and metoprolol. Abdominal sensitive, hypertension he was placed back on verapamil. Discharged on verapamil, hydrochlorothiazide and valsartan. (4) Hypothyroidism (acquired) History of pituitary tumor, status post hypophysectomy. TSH, T3-T4 WNL. Resumed home meds. Outpatient PCP follow-up. (5) Hyperlipidemia Resumed statins. Diet and lifestyle modification recommended. TSH, T3 and T4 WNL. Hemoglobin A1c WNL. Lipid panel WNL. (6) Suspected COVID-19 virus infection COVID-19 serology negative. Denied any exposure to anyone with suspected COVID 19 exposure. Denies any fever. Presented with with fatigue, dyspnea on exertion and dry cough. Denies any diarrhea, loss of smell or loss of taste. She was started on azithromycin and dexamethasone DC'd once CODE STATUS came back negative. DC azithromycin and dexamethasone. (7) Positive culture finding Blood culture 1/2 positive for Bacillus species, no Anathracis. Determined to be contamination. (8) Bilateral pneumonia Likely community-acquired, due to gram-positive's including strep pneumo. Cultures negative. Initially started on azithromycin and ceftriaxone. Patient was still having significant leukocytosis. After being switched to levofloxacin leukocytosis improved significantly. Was discharged on levofloxacin for another 3 days. Afebrile at the time of discharge. SPO2 WNL on RA. (9) Elevated troponins. Likely due to demand mismatch due to massive pulmonary emboli. Denied any history of CAD. Troponins trending down. Was a started on antiplatelets, statins, beta-blockers, CARMELO, sublingual nitroglycerin, IV morphine. Cardiology consulted. Outpatient stress test was planned by Dr. Montano. Please refer to note. Physical Exam Vital Signs: Temp Pulse Resp BP Pulse Ox 97.6 F 61 16 132/68 H 95 10/29/19 11:02 10/29/19 11:02 10/29/19 11:02 10/29/19 11:02 10/29/19 11:02 Pulse Oximeter Nocturnal Start: 10/27/19 15:35 Freq: RTQ4 Status: Complete Protocol: Document 10/28/19 03:54 JONAH (Rec: 10/28/19 03:54 JONAH [id number]) Nocturnal Pulse Oximetry Equipment Usage Equipment in Use Oxygen Delivery Method (includes room Room Air air) O2 Sat by Pulse Oximetry (92-100) 93 Continuous SpO2 Machine # 7 Intake & Output 10/28/19 10/29/19 10/30/19 06:59 06:59 06:59 Intake Total 760 1329 Balance 760 1329 Weight 102.4 kg 103.1 kg General appearance: PRESENT: no acute distress, obese, well-developed, well- nourished Head exam: PRESENT: atraumatic, normocephalic Respiratory exam: PRESENT: clear to auscultation michelle. ABSENT: rales, rhonchi, wheezes Cardiovascular exam: PRESENT: RRR. ABSENT: diastolic murmur, rubs, systolic murmur GI/Abdominal exam: PRESENT: normal bowel sounds, soft. ABSENT: distended, guarding, mass, organolmegaly, rebound, tenderness Neurological exam: PRESENT: alert, awake, oriented to person, oriented to place, oriented to time, oriented to situation, CN II-XII grossly intact. ABSENT: motor sensory deficit Skin exam: PRESENT: dry, intact, warm. ABSENT: cyanosis, rash Results Laboratory Results: WBC 11.8 10^3/uL (4.0-10.5) H 10/29/19 04:54 RBC 4.64 10^6/uL (4.35-5.55) 10/29/19 04:54 Hgb 13.8 g/dL (13.5-17.0) 10/29/19 04:54 Hct 41.9 % (37.9-51.0) 10/29/19 04:54 MCV 90 fl (80-97) 10/29/19 04:54 MCH 29.8 pg (27.0-33.4) 10/29/19 04:54 MCHC 33.0 g/dL (32.0-36.0) 10/29/19 04:54 RDW 15.1 % (11.5-14.0) H 10/29/19 04:54 Plt Count 182 10^3/uL (150-450) 10/29/19 04:54 Lymph % (Auto) 24.9 % (13-45) 10/29/19 04:54 [place] % (Auto) 8.8 % (3-13) 10/29/19 04:54 Eos % (Auto) 2.4 % (0-6) 10/29/19 04:54 Baso % (Auto) 0.5 % (0-2) 10/29/19 04:54 Absolute Neuts (auto) 7.5 10^3/uL (1.7-8.2) 10/29/19 04:54 Absolute Lymphs (auto) 2.9 10^3/uL (0.5-4.7) 10/29/19 04:54 Absolute Monos (auto) 1.0 10^3/uL (0.1-1.4) 10/29/19 04:54 Absolute Eos (auto) 0.3 10^3/uL (0.0-0.6) 10/29/19 04:54 Absolute Basos (auto) 0.1 10^3/uL (0.0-0.2) 10/29/19 04:54 Total Counted 100 10/27/19 05:36 Seg Neutrophils % 63.4 % (42-78) 10/29/19 04:54 Seg Neuts % (Manual) 88 % (42-78) H 10/27/19 05:36 Lymphocytes % (Manual) 4 % (13-45) L 10/27/19 05:36 Atypical Lymphs % 2 % (0) 10/27/19 05:36 Monocytes % (Manual) 6 % (3-13) 10/27/19 05:36 Eosinophils % (Manual) 0 % (0-6) 10/27/19 05:36 Basophils % (Manual) 0 % (0-2) 10/27/19 05:36 Abs Neuts (Manual) 18.0 10^3/uL (1.7-8.2) H 10/27/19 05:36 Abs Lymphs (Manual) 1.2 10^3/uL (0.5-4.7) 10/27/19 05:36 Abs Monocytes (Manual) 1.2 10^3/uL (0.1-1.4) 10/27/19 05:36 Absolute Eos (Manual) 0.0 10^3/uL (0.0-0.6) 10/27/19 05:36 Abs Basophils (Manual) 0.0 10^3/uL (0.0-0.2) 10/27/19 05:36 Large Platelets PRESENT 10/27/19 05:36 Platelet Comment ADEQUATE 10/27/19 05:36 Anisocytosis SLIGHT 10/27/19 05:36 PT 14.5 SEC (11.4-15.4) 10/26/19 07:56 INR 1.12 10/26/19 07:56 Sodium 136.9 mmol/L (137-145) L 10/29/19 04:54 Potassium 4.1 mmol/L (3.6-5.0) 10/29/19 04:54 Chloride 105 mmol/L (98-107) 10/29/19 04:54 Carbon Dioxide 27 mmol/L (22-30) 10/29/19 04:54 Anion Gap 5 (5-19) 10/29/19 04:54 BUN 28 mg/dL (7-20) H 10/29/19 04:54 Creatinine 1.07 mg/dL (0.52-1.25) 10/29/19 04:54 Est GFR ( Amer) > 60 (>60) 10/29/19 04:54 Est GFR (MDRD) Non-Af > 60 (>60) 10/29/19 04:54 Glucose 99 mg/dL (75-110) 10/29/19 04:54 Hemoglobin A1c % 6.4 % (4.7-6.0) H 10/25/19 16:20 Calcium 9.0 mg/dL (8.4-10.2) 10/29/19 04:54 Magnesium 2.0 mg/dL (1.6-2.3) 10/26/19 07:56 Total Bilirubin 0.7 mg/dL (0.2-1.3) 10/27/19 05:36 Direct Bilirubin 0.0 mg/dL (0.0-0.4) 10/27/19 05:36 Neonat Total Bilirubin Not Reportable 10/27/19 05:36 Neonat Direct Bilirubin Not Reportable 10/27/19 05:36 Neonat Indirect Bili Not Reportable 10/27/19 05:36 AST 24 U/L (17-59) 10/27/19 05:36 ALT 18 U/L (<50) 10/27/19 05:36 Alkaline Phosphatase 64 U/L (38-126) 10/27/19 05:36 Troponin I 0.057 ng/mL 10/27/19 05:36 NT-Pro-B Natriuret Pep 278 pg/mL (<450) 10/25/19 11:25 Total Protein 6.8 g/dL (6.3-8.2) 10/27/19 05:36 Albumin 3.8 g/dL (3.5-5.0) 10/27/19 05:36 Triglycerides 140 mg/dL (<150) 10/25/19 16:20 Cholesterol 166.98 mg/dL (0-200) 10/25/19 16:20 LDL Cholesterol Direct 97 mg/dL (<100) 10/25/19 16:20 VLDL Cholesterol 28.0 mg/dL (10-31) 10/25/19 16:20 HDL Cholesterol 47 mg/dL (>40) 10/25/19 16:20 TSH 1.59 uIU/mL (0.47-4.68) 10/25/19 11:25 Free T4 1.58 ng/dL (0.78-2.19) 10/25/19 11:25 Urine Color YELLOW 10/25/19 18:30 Urine Appearance CLEAR 10/25/19 18:30 Urine pH 6.0 (5.0-9.0) 10/25/19 18:30 Ur Specific [place] 1.009 10/25/19 18:30 Urine Protein NEGATIVE mg/dL (NEGATIVE) 10/25/19 18:30 Urine Glucose (UA) NEGATIVE mg/dL (NEGATIVE) 10/25/19 18:30 Urine Ketones NEGATIVE mg/dL (NEGATIVE) 10/25/19 18:30 Urine Blood SMALL (NEGATIVE) H 10/25/19 18:30 Urine Nitrite (Reflex) NEGATIVE (NEGATIVE) 10/25/19 18:30 Urine Bilirubin NEGATIVE (NEGATIVE) 10/25/19 18:30 Urine Urobilinogen NEGATIVE mg/dL (<2.0) 10/25/19 18:30 Leukocyte Esterase Rfl TRACE (NEGATIVE) H 10/25/19 18:30 Urine RBC (Auto) 1 /HPF 07/08/20 18:30 Urine WBC (Reflex) 14 /HPF 10/25/19 18:30 Squamous Epi Cells Auto <1 /HPF 10/25/19 18:30 Urine Ascorbic Acid NEGATIVE (NEGATIVE) 10/25/19 18:30 COVID-19 Source NASOPHARYNGEAL 10/25/19 11:35 COVID-19 (XENIA) NOT DETECTED 10/25/19 11:35 10/25/19 10/25/19 10/26/19 11:25 19:42 01:57 Troponin I 0.052 0.410 0.330 NT-Pro-B Natriuret Pep 278 10/27/19 05:36 Troponin I 0.057 NT-Pro-B Natriuret Pep Impressions: Chest X-Ray 10/25/19 11:22 IMPRESSION: Enlarged cardiac silhouette, central vascular congestion and interstitial edema. More focal right infrahilar opacity possibly asymmetric edema or developing infiltrate. Chest/Abdomen CTA 10/27/19 00:00 IMPRESSION: 1. Acute bilateral pulmonary emboli with evidence of right ventricular strain. 2. Mosaic attenuation pattern of the lung parenchyma - the finding can occur in the setting of occlusive vascular disease (i.e. chronic pulmonary embolism and chronic thromboembolic pulmonary hypertension). Chest X-Ray 10/28/19 00:00 IMPRESSION: Cardiomegaly with possible mild pulmonary vascular congestion. Patchy infiltrate in the right mid lung. Diagnostic possibilities include pulmonary edema and pneumonia. copyright 2010 [facility] [employer]- All Rights Reserved Plan Goals: 10/27/19@1610 - Called field secretary in respiratory - left message requesting appt for "Outpatient full PFT's with DLCO and pre and post xoponexo...[id number] treatment (SEE Doctor/Nurse notes). MYH Time Spent: Greater than 30 Minutes Stroke Is this a Stroke Patient?: No Acute Heart Failure - Is this a Heart Failure Patient?: No
== END 2019-10-29 11:22 | disposition home or self-care (01) | DRG 175 ==
LOC: ER 11:08 → EH 15:25 → 3N 19:15 → 5 10-27 03:54
PROVIDERS: ADMIT Internal Medicine; ATTEND Internal Medicine
DX: I26.99 Other pulmonary embolism without acute cor pulmonale (principal); J15.4 Pneumonia due to other streptococci; I42.9 Cardiomyopathy, unspecified; I27.20 Pulmonary hypertension, unspecified; E78.2 Mixed hyperlipidemia; I10 Essential (primary) hypertension; Z20.828 Contact with and (suspected) exposure to other viral communicable diseases; E89.0 Postprocedural hypothyroidism; E78.5 Hyperlipidemia, unspecified; M10.9 Gout, unspecified; R79.89 Other specified abnormal findings of blood chemistry
CPT/HCPCS: 36415; 71045; 71275; 80048; 80053; 80061; 81001; 83036; 83735; 83880; 84439; 84443; 84484; 85025; 85027; 85610; 87040; 87077; 87086; 87150; 87635; 93005; 93010; 93306; 94640; 94762; 96365; 99285; C9803; J0456; J0696; J1650; J3490; J7060; J8540

== ENCOUNTER → 2019-12-13 | Outpatient (CLI) | payer MEDICARE, OTHER ==
[~2019-12-13] MED LIST: ALBUTEROL SULFATE 0.083% NEB 2.5 MG/3 ML AMPUL NEB ONE
[2019-12-13 12:44] LABS: ARTERIAL BLOOD BASE EXCESS 0.4 mmol/L; ARTERIAL BLOOD FIO2 ROOMAIR; ARTERIAL BLOOD H2CO3 1.16 mmol/L (1.05-1.35); ARTERIAL BLOOD HCO3 24.7 mmol/L (20-24); ARTERIAL BLOOD O2 SATURATION 96.8 % (94-98); ARTERIAL BLOOD PCO2 38.7 mmHg (35-45); ARTERIAL BLOOD PH 7.42 (7.35-7.45); ARTERIAL BLOOD PO2 86.8 mmHg (80-100); ARTERIAL BLOOD TOTAL CO2 25.8 mmol/L (23-27)
--- NOTE | 2019-12-13 15:36 | Pulmonary Function Test ---
Pulmonary Function Test Date of Procedure:: 12/13/19 INDICATION:: Dyspnea Referring Provider: Dr. Jennings Classification Officer: Cassdiy Burton VETERINARIAN ASSISTANT - Report Spirometry: Spirometry: pre-FVC: 2.08 L 47% post-FVC: 2.32 L 54% pre-FEV:1 1.83 L 54% post-FEV1: 1.94 L 57% pre-FEV1/FVC %: 89 post-FEV1/FVC%: 82 predicted: 76 [id number]%: 2.89 L 90% [id number]%: 2.81 L 87% Lung Volume: Total lung capacity: 3.64 L 52% Vital capacity: 2.14 L 49% Inspiratory capacity: 1.85 L FRC N2: 1.79 L 46% ERV: 0.14 L RV: 1.50 L 51% RV/TLC %:: 41 predicted 45 Diffusion Capactity: DLCO: 15.5 70% DLCO/VA: 4.68 140% Impression: No Obstructive ventilatory defect. Moderate restrictive ventilatory defect. (Restrictive defect may mask the degree of obstruction.) Mild decrease in diffusion capacity.
== END ==
LOC: RT 12:08
PROVIDERS: ATTEND Specialist
DX: R06.02 Shortness of breath (principal)
CPT/HCPCS: 82803; 36600; 94729; 94727; 94060; A9270; J7613